=== PATIENT | female | born 1995 | race Caucasian/White ===

== ENCOUNTER 2016-04-09 14:48 | Emergency (ER) | payer OTHER ==
[~2016-04-09 14:48] MED LIST: NITR100C4 PO
--- NOTE | 2016-04-09 15:45 | PD ---
HPI Chief Complaint Contractions Date Seen: Apr 09, 2016 Time Seen: 15:30 (Fransisco Deal MD R2) Travel History International Travel<30 Days: No Contact w/Intl Traveler<30Days: No (Fransisco Deal MD R2) History of Present Illness HPI 20 year old at 40 weeks gestation with EDC of 04/09/2016 presents with contractions. The contractions started 2 days ago. She reports they are every 4 to 5 mins and have become stronger and more consistent over the last couple days. She reports that at her OB office she was 4 cm dilated, but in the OB ED she is 1 cm dilated. She also feels lower back pain and lower abdominal pressure. She has copious mucous discharge over the last few days, non- malodorous and clear. She sudden gush of fluid. She has some sporadic spotting over the last couple days, less than a pad worth of bleeding. She has no chest pain, shortness of breath, headache, blurry vision, or calf tenderness. No significant edema. (Fransisco Deal MD R2) History Past Medical History Narrative Medical Asthma, mild, has not required inhalers this (Fransisco Deal MD R2) Obstetric History Obstetric History No complications during this Had one borderline high blood pressure in OB clinic (Fransisco Deal MD) Past Surgical History Narrative Surgical none (Fransisco Deal MD) Family History Narrative Family History Mom and dad healthy (Fransisco Deal MD) Social History Narrative Social History No smoking, drinking, or drug use (Fransisco Deal MD) Allergies-Medications (Allergen,Severity, Reaction): Coded Allergies: No Known Allergies (Verified , 09/12/15) Home Meds Active Scripts Nitrofurantoin Monohydrate Macrocrystals 100 Mg [id number] Mg PO BID #10 CAP Ref 0 Prov:Farzad Gill MD R1 03/04/16 Review of Systems General / Constitutional: Weight Gain, No: Fever, Weight Loss, Chills Eyes: No: Diploplia, Blurred Vision, Visual changes HENT: No: Headaches, Vertigo, Lightheadedness Cardiovascular: No: Irregular Rhythm, Chest Pain or Discomfort, Palpitations, Tachycardia, Syncope, Edema Respiratory: No: Cough, Short of Breath, Wheezing Gastrointestinal: Abdominal Pain, No: Nausea, Vomiting, Diarrhea Genitourinary: No: Urgency, Frequency, Dysuria Musculoskeletal: Cramping, Pain, No: Weakness, Edema Skin: No Rash, No Itching, No Dryness Neurologic: No: Weakness, Dizziness, Syncope, Focal Abnormalities, Headache, Slurred Speech, Seizures Psychiatric: No: Anxiety, Depression, Mood Disorder, Substance Abuse Endocrine: No: Heat Intolerance, Cold Intolerance Hematologic/Lymphatic: No Easy Bruising (Fransisco Deal MD R2) Physical Exam Narrative GENERAL: Well-nourished, well-developed patient. SKIN: Warm and dry. HEAD: Normocephalic and atraumatic. EYES: No scleral icterus. No injection or drainage. ENT: No nasal drainage noted. Mucous membranes pink. Airway patent. NECK: Supple, trachea midline. No JVD. CARDIOVASCULAR: Regular rate and rhythm without murmurs, gallops, or rubs. RESPIRATORY: Breath sounds equal bilaterally. No accessory muscle use. ABDOMEN/GI: Abdomen soft, non-tender, bowel sounds present, no rebound, no guarding Gravid to 40 weeks size GENITOURINARY: External Genitalia: intact and normal in appearance Dilatation: 1 cm Effacement: 70% Station: -2 Presentation: [-] Membranes: unknown Uterine Contractions: q4-5mins, inconsistent FHT's: Category: 1 Baseline: 130's Reactive: yes Variability: moderate Decels: none EXTREMITIES: No cyanosis or edema. BACK: Nontender without obvious deformity. No CVA tenderness. NEUROLOGICAL: Awake and alert. Motor and sensory grossly within normal limits. Five out of 5 muscle strength in all muscle groups. Normal speech. (Fransisco Deal MD R2) Data Data Vital Signs Reviewed: Yes (Fransisco Deal MD R2) MDM Medical Record Reviewed: Yes Interpretation(s) 20 year old at 40 weeks gestation with EDC of 04/09/2016 presents with contractions. - Labor check, currently 1 cm, posterior, thick. Monitor contractions, q4-5mins but inconsistent. - Continuous monitoring. - BPP to assess status and check MARY ELLEN Discuss with Dr. Joseph Narrative Course / MDM 20 year old at 40 weeks gestation with EDC of 04/09/2016 presents with contractions. BPP is 8/8, MARY ELLEN 13 cm. Having contractions but no progression of cervical dilatation. - Return to OB ED if contractions increase in intensity and frequency, or if there is sudden gush of fluids. Keep log of contractions. - Follow up with OB physician as scheduled. - Scheduled for induction on 04/16/15, at 6 AM. (Fransisco Deal MD R2) Diagnosis Diagnosis: Primary Impression: Uterine contractions during Disposition: DISCHARGE HOME Condition: Good Attestation Patient seen and examined with the resident under direct supervision, I agree with the assessment and plan. Patient is in early labor, may discharge patient to home, patient instructed to return to labor and delivery if increased contractions, vaginal bleeding, leakage of fluids, or decreased movement. She is instructed to monitor kick counts. Drink plenty of fluids. Keep office appointment as scheduled. BPP performed is 8 out of 8, NST is reactive. (Apolinar Maki MD) Fransisco Deal MD R2 Apr 09, 2016 15:45 Apolinar Maki MD Apr 09, 2016 22:33
[2016-04-09 17:13] LABS: BLOOD, URINE MOD (NEG); COMMENT (UR) CULTURE INDICATED; CULTURE IF INDICATED CULTURE INDICATED; GLUCOSE,URINE NEG (NEG); KETONE, URINE TRACE mg/dL (NEG); MUCUS URINE FEW /lpf (OCC); NITRITE,URINE NEG (NEG); SQUAMOUS EPITHELIAL CELL URINE 1 /hpf (0-5); URINE COLOR YELLOW (YELLW/STRAW)
== END 2016-04-09 16:57 | disposition home or self-care (01) ==
LOC: HOBED 14:48
DX: O26.93 Pregnancy related conditions, unspecified, third trimester (principal); Z3A.40 40 weeks gestation of pregnancy; B96.89 Other specified bacterial agents as the cause of diseases classified elsewhere
CPT/HCPCS: 59025; 76816; 76819; 81001; 87086

== ENCOUNTER 2016-04-16 05:59 | Inpatient (IN) | payer OTHER ==
[2016-04-16] VITALS (35 sets, daily range): BP systolic 104–135; BP diastolic 60–98; PULSE 59–116; RESP 18; TEMP 97.7–98.4
[2016-04-16] MEDS ORDERED: LACTATED RINGER'S 1000 ML INJ 1,000 ML IV PRN (06:53)
[2016-04-16] MEDS ORDERED: LIDOCAINE HCL 1% 50 ML VIAL I-DERMAL PRN (07:00)
[2016-04-16] MEDS ORDERED: MINERAL OIL 10 ML VIAL TOPICAL PRN (07:00)
[2016-04-16] MEDS ORDERED: OXYTOCIN 30 UNITS-500ML PREMIX 500 ML IV SCH (07:00)
[2016-04-16] MEDS ORDERED: SODIUM CHLORID 0.9% 500 ML INJ 500 ML IV PRN (07:00)
[2016-04-16] MEDS ORDERED: OXYTOCIN 30 UNITS-500ML PREMIX 500 ML IV ONE (07:00)
[2016-04-16] MEDS ORDERED: CITRIC ACID-SODIUM CITRATE LIQ 30 ML UDC PO SCH (07:00)
[2016-04-16] MEDS ORDERED: ONDANSETRON HCL 4 MG/2 ML VIAL IV PRN (07:00)
[2016-04-16] MEDS ORDERED: LIDOCAINE HCL 1% 50 ML VIAL INFIL PRN (07:00)
[2016-04-16] MEDS ORDERED: SODIUM CHLOR 0.9% 1000 ML INJ 1,000 ML IV PRN (07:13)
[2016-04-16 07:24] LABS: AUTOMATED NEUTROPHIL # 4.5 TH/MM3 (1.8-7.7); BASOPHIL % 0.4 % (0.0-2.0); EOSINOPHIL # 0.1 TH/MM3 (0-0.4); EOSINOPHIL % 0.9 % (0.0-4.0); HEMO FLAGS DIFF FINAL; LYMPH % 28.2 % (9.0-44.0); MEAN CELL VOLUME 78.6 FL (80.0-100.0); MEAN CORPUSCULAR HEMOGLOBIN 25.3 PG (27.0-34.0); MEAN CORPUSCULAR HGB CONC 32.2 % (32.0-36.0); MONO % 7.8 % (0.0-8.0); NEUT % 62.7 % (16.0-70.0); PLATELET COUNT 281 TH/MM3 (150-450); RED BLOOD COUNT 4.59 MIL/MM3 (4.00-5.30); RED CELL DISTRIBUTION WIDTH 14.6 % (11.6-17.2); WHITE BLOOD COUNT 7.2 TH/MM3 (4.0-11.0)
[2016-04-16 07:31] LABS: BACTERIA, URINE FEW /hpf; BLOOD, URINE SMALL (NEG); COMMENT (UR) CULTURE INDICATED; CULTURE IF INDICATED CULTURE INDICATED; GLUCOSE,URINE NEG (NEG); KETONE, URINE TRACE mg/dL (NEG); MUCUS URINE FEW /lpf (OCC); NITRITE,URINE NEG (NEG); SQUAMOUS EPITHELIAL CELL URINE 14 /hpf (0-5); TRANSITIONAL EPI CELLS, URINE 1 /hpf; URINE COLOR YELLOW (YELLW/STRAW)
[2016-04-16] MEDS: LACTATED RINGER'S 1000 ML INJ 1,000 ML IV SCH ×2 (07:36→14:53)
[2016-04-16] MEDS ORDERED: fentaNYL 2MCG-BUPIV 0.125% INJ 100 ML ONE (08:04)
[2016-04-16] MEDS ORDERED: ePHEDrine/NS 50 MG/5 ML SYR ONE (08:36)
--- NOTE | 2016-04-16 09:15 | PD.LABORPN ---
Subjective Subjective Patient resting in bed. No complaints/concerns. No loss of fluids. Feeling regular contractions, movement. (Titi Araujo MD R1) Objective Vital Signs Vital Signs Date Time Temp Pulse Resp B/P Pulse Ox O2 Delivery O2 Flow Rate FiO2 04/16/16 08:42 92 119/89 04/16/16 08:40 67 04/16/16 08:39 66 112/77 04/16/16 08:36 86 122/78 04/16/16 08:35 60 04/16/16 08:34 59 108/69 04/16/16 08:30 79 118/73 04/16/16 08:27 77 120/70 04/16/16 08:25 86 04/16/16 08:24 86 120/76 04/16/16 08:22 98 108/68 04/16/16 08:20 84 04/16/16 08:18 91 122/81 04/16/16 08:15 96 129/82 04/16/16 08:14 96 135/83 04/16/16 08:00 86 125/95 Objective Pelvic Exam: Dilatation: 9 Effacement: 90 Station: 0 Presentation: vertex Membranes: intact Uterine Contractions: q4-5 minutes FHT's: Category: 1 Baseline: 140 Reactive: yes Variability: moderate Decels: none (Titi Araujo MD R1) Assessment/Plan Assessment and Plan 20 y/o at 41/0 weeks in labor 1) IUP - Continue heart monitoring - AROM - Monitor vitals - Plan for vaginal delivery (Titi Araujo MD R1) Assessment and Plan Patient seen and evaluated with the resident under direct supervision, I agree with the assessment and plan. (Apolinar Maki MD) Titi Araujo MD R1 Apr 16, 2016 09:15 Apolinar Maki MD Apr 21, 2016 20:45
[2016-04-16] MEDS ORDERED: ZOLPIDEM TARTRATE 5 MG TAB PO PRN (12:15)
[2016-04-16] MEDS ORDERED: WITCH HAZEL 50%/GLYCERIN 12.5% 40 PAD JAR TOPICAL PRN (12:15)
[2016-04-16] MEDS ORDERED: DOCUSATE SODIUM 50 MG/SENNA 8.6 MG TAB PO PRN (12:15)
[2016-04-16] MEDS ORDERED: ACETAMINOPHEN 325 MG TAB PO PRN (12:15)
[2016-04-16] MEDS ORDERED: IBUPROFEN 600 MG TAB PO PRN (12:15)
[2016-04-16] MEDS ORDERED: ALUMINUM/MAGNESIUM/SIMETH 30 ML CUP PO PRN (12:15)
[2016-04-16] MEDS ORDERED: ONDANSETRON ODT 4 MG TAB PO PRN (12:15)
[2016-04-16] MEDS ORDERED: BENZOCAINE 20% TOPICAL SPRAY 60 ML CAN TOPICAL PRN (12:15)
[2016-04-16] MEDS ORDERED: SODIUM CHLORIDE 0.9% FLUSH 5 ML FLUSH IV PRN (12:15)
--- NOTE | 2016-04-16 12:15 | PD.OB.DELI ---
Delivery Date: Apr 16, 2016 Anesthesia: Epidural Episiotomy: None Vaginal Delivery: Normal Presentation: Occiput posterior Nuchal Cord: None Infant: Male One Minute : 9 Five Minute : 9 Ten Minute : 9 Weight: 3230 Infant Care: Suctioned Placenta: Spontaneous delivery, Intact, 3 vessel cord Laceration: 2 deg Repair: Fransisco Sampson MD R2 Apr 16, 2016 12:15
--- NOTE | 2016-04-16 12:37 | PD.LABORPN ---
Subjective Subjective OB attending supervising note This patient delivered vaginally on pain initially over a second-degree perineal laceration no episiotomy used for condition is delivery is a male weight 3230 g 9 and 9 were no complications cord blood obtained placenta out spontaneously intact delivery done by the family preservation caseworker. Cord blood was obtained, laceration repaired in layers with 2-0 chromic suture there was no complication and I supervised that the repair, mother and baby doing well blood loss 200 cc sponge and needle count correct 2 Objective Vital Signs Vital Signs Date Time Temp Pulse Resp B/P Pulse Ox O2 Delivery O2 Flow Rate FiO2 04/16/16 12:17 83 119/81 04/16/16 12:16 86 04/16/16 12:00 89 124/72 04/16/16 11:46 89 123/77 04/16/16 10:00 71 116/60 04/16/16 09:30 76 129/84 04/16/16 09:09 98.4 18 04/16/16 09:00 63 124/75 04/16/16 09:00 63 124/75 04/16/16 08:57 61 120/79 04/16/16 08:54 64 120/77 04/16/16 08:51 68 118/80 04/16/16 08:50 73 04/16/16 08:50 69 119/72 04/16/16 08:47 74 104/84 04/16/16 08:45 86 04/16/16 08:42 92 119/89 04/16/16 08:40 67 04/16/16 08:39 66 112/77 04/16/16 08:36 86 122/78 04/16/16 08:35 60 04/16/16 08:34 59 108/69 04/16/16 08:30 62 04/16/16 08:30 79 118/73 04/16/16 08:27 77 120/70 04/16/16 08:25 86 04/16/16 08:24 86 120/76 04/16/16 08:22 98 108/68 04/16/16 08:20 84 04/16/16 08:18 91 122/81 04/16/16 08:15 93 04/16/16 08:15 96 129/82 04/16/16 08:14 96 135/83 04/16/16 08:00 86 125/95 Objective Pelvic Exam: Cervix: [-] Dilatation: [-] Effacement: [-] Station: [-] Presentation: [-] Membranes: [intact or ruptured] Uterine Contractions: [-] FHT's: Category: [-] Baseline: [-] Reactive: [-] Variability: [-] Decels: [-] Munir Schroeder II, MD Apr 16, 2016 12:37
[2016-04-16] MEDS ORDERED: NO SYSTEM NARCOTICS XX PRN (13:00)
[2016-04-16] MEDS ORDERED: ePHEDrine/NS 50 MG/5 ML SYR IV PRN (13:00)
[2016-04-16] MEDS ORDERED: DO NOT ADMINISTER ANTICOAGULANTS XX PRN (13:00)
[2016-04-16] MEDS ORDERED: fentaNYL 2MCG-BUPIV 0.125% INJ 100 ML EPIDURAL SCH (13:00)
[2016-04-16] MEDS ORDERED: MEASLES, MUMPS, RUBELLA VACCINE 0.5 ML VIAL SQ ONE (16:00)
[2016-04-16] MEDS ORDERED: DIPHTH/TETANUS/ACEL PERTUSSIS (BOOSTER) 0.5 ML VIAL/PFS IM ONE (16:00)
[2016-04-16] MEDS ORDERED: SODIUM CHLORIDE 0.9% FLUSH 5 ML FLUSH IV SCH (21:00)
[2016-04-17 08:30] VITALS: BP 119/78; PULSE 87; RESP 16; TEMP 98.7
--- NOTE | 2016-04-17 08:44 | HHI.OB ---
Subjective Post Day: 1 Remarks day #1. AFVSS overnight. Pain minimal. Decreased lochia. Denies dysuria. No breast tenderness. Appetite good. No nausea or vomiting. Endorses flatus. Denies bowel movement. Ambulating well. Denies calf pain, shortness of breath, or cough. Otherwise, she is doing well this morning and has no other complaints. Objective Vitals/I&O Vital Signs Date Time Temp Pulse Resp B/P Pulse Ox O2 Delivery O2 Flow Rate FiO2 04/16/16 14:25 97.7 76 18 108/80 04/16/16 13:30 116 117/98 04/16/16 13:15 64 129/83 04/16/16 13:01 70 124/82 04/16/16 12:45 70 132/89 04/16/16 12:17 83 119/81 04/16/16 12:16 86 04/16/16 12:00 89 124/72 04/16/16 11:46 89 123/77 04/16/16 10:00 71 116/60 04/16/16 09:30 76 129/84 04/16/16 09:09 98.4 18 04/16/16 09:00 63 124/75 04/16/16 09:00 63 124/75 04/16/16 08:57 61 120/79 04/16/16 08:54 64 120/77 04/16/16 08:51 68 118/80 04/16/16 08:50 73 04/16/16 08:50 69 119/72 04/16/16 08:47 74 104/84 04/16/16 08:45 86 Objective Remarks GENERAL: Well-nourished, well-developed patient. CARDIOVASCULAR: Regular rate and rhythm without murmurs, gallops, or rubs. RESPIRATORY: Breath sounds equal bilaterally. No accessory muscle use. ABDOMEN/GI: Abdomen soft, non-tender. Fundus: Firm, non-tender at umbilicus. GENITOURINARY: Light to moderate bleeding. EXTREMITIES: No cyanosis or edema, non-tender, without signs of DVT. Medications and IVs Current Medications Medications (Trade) Dose Ordered Sig/Real Route Start Time Stop Time Status Last Admin Lactated Ringer's 1,000 ml @ 125 mls/hr Q8H IV 04/16/16 06:53 04/16/16 07:36 Lactated Ringer's 1,000 ml @ 3,000 mls/hr Q20M PRN IV 04/16/16 06:53 Sodium Chloride 500 ml @ 1,000 mls/hr ONCE PRN IV 04/16/16 07:00 04/23/16 06:59 (NS 1000 ml Inj) 1,000 ml @ 100 mls/hr Q10H PRN IV 04/16/16 07:13 (Zofran Inj) 4 mg Q6H PRN IV 04/16/16 07:00 (fentaNYL INJ) 50 mcg Q1H PRN IV PUSH 04/16/16 07:00 (fentaNYL INJ) 100 mcg Q1H PRN IV PUSH 04/16/16 07:00 Mineral Oil 10 ml 10 ml UNSCH PRN TOPICAL 04/16/16 07:00 (Pitocin 30 Units-NS 500 ml Premix) 500 ml @ 0 mls/hr TITRATE IV 04/16/16 07:00 04/16/16 07:40 (NS Flush) 2 ml BID IV 04/16/16 21:00 (NS Flush) 2 ml UNSCH PRN IV 04/16/16 12:15 (Tylenol) 650 mg Q4H PRN PO 04/16/16 12:15 (Motrin) 600 mg Q6H PRN PO 04/16/16 12:15 (Americaine 20% Top Spr) 1 spray Q4H PRN TOPICAL 04/16/16 12:15 04/16/16 15:05 (Tucks Pads) 1 applic QID PRN TOPICAL 04/16/16 12:15 04/16/16 15:05 (Gregoria-Colace) 2 tab Q12H PRN PO 04/16/16 12:15 (Ambien) 5 mg HS PRN PO 04/16/16 12:15 (Mag-Al Plus Susp Liq) 15 ml Q8H PRN PO 04/16/16 12:15 (Zofran Odt) 4 mg Q6H PRN PO 04/16/16 12:15 Miscellaneous Information No systemic narcotics to be given except... UNSCH PRN XX 04/16/16 13:00 04/17/16 12:59 Miscellaneous Information DO NOT ADMINISTER ANY ANTICOAGUL... UNSCH PRN XX 04/16/16 13:00 04/17/16 12:59 (fentaNYL 2MCG-BUPIV 0.125% INJ) 100 ml @ 0 mls/hr TITRATE EPIDURAL 04/16/16 13:00 (ePHEDrine/NS 50 MG/5 ML SYR) 10 mg UNSCH PRN IV 04/16/16 13:00 04/17/16 12:59 (Flu (Quadrivalent) Vaccine Inj) 0.5 ml ONCE ONCE IM 04/17/16 10:00 04/17/16 10:01 Assessment/Plan Assessment and Plan 20y/o who is PPD#1 s/p . -Continue routine care. -Percocet and Motrin PRN pain. -Encouraged OOB. Advised pelvic rest for 6 wks. -Will need a f/u appt. within 6 wks. -Re: ctrl, she is undecided -D/c in 1-2 more days. wdw OB attending Discharge Planning 1-2 days Titi Araujo MD R1 Apr 17, 2016 08:44
--- NOTE | 2016-04-17 09:12 | HHI.OB ---
Subjective Post Day: 1 Remarks Patient is day 1 from a vaginal delivery without complication. She had the normal progress since delivery baby is doing well. She has been bleeding decreased and normal bowel bladder function. Objective Vitals/I&O Vital Signs Date Time Temp Pulse Resp B/P Pulse Ox O2 Delivery O2 Flow Rate FiO2 04/16/16 14:25 97.7 76 18 108/80 04/16/16 13:30 116 117/98 04/16/16 13:15 64 129/83 04/16/16 13:01 70 124/82 04/16/16 12:45 70 132/89 04/16/16 12:17 83 119/81 04/16/16 12:16 86 04/16/16 12:00 89 124/72 04/16/16 11:46 89 123/77 04/16/16 10:00 71 116/60 04/16/16 09:30 76 129/84 Objective Remarks GENERAL: Well-nourished, well-developed patient. CARDIOVASCULAR: Regular rate and rhythm without murmurs, gallops, or rubs. RESPIRATORY: Breath sounds equal bilaterally. No accessory muscle use. ABDOMEN/GI: Abdomen soft, non-tender. Fundus: Firm, non-tender at umbilicus. GENITOURINARY: Light to moderate bleeding. EXTREMITIES: No cyanosis or edema, non-tender, without signs of DVT. Medications and IVs Current Medications Medications (Trade) Dose Ordered Sig/Real Route Start Time Stop Time Status Last Admin Lactated Ringer's 1,000 ml @ 125 mls/hr Q8H IV 04/16/16 06:53 04/16/16 07:36 Lactated Ringer's 1,000 ml @ 3,000 mls/hr Q20M PRN IV 04/16/16 06:53 Sodium Chloride 500 ml @ 1,000 mls/hr ONCE PRN IV 04/16/16 07:00 04/23/16 06:59 (NS 1000 ml Inj) 1,000 ml @ 100 mls/hr Q10H PRN IV 04/16/16 07:13 (Zofran Inj) 4 mg Q6H PRN IV 04/16/16 07:00 (fentaNYL INJ) 50 mcg Q1H PRN IV PUSH 04/16/16 07:00 (fentaNYL INJ) 100 mcg Q1H PRN IV PUSH 04/16/16 07:00 Mineral Oil 10 ml 10 ml UNSCH PRN TOPICAL 04/16/16 07:00 (Pitocin 30 Units-NS 500 ml Premix) 500 ml @ 0 mls/hr TITRATE IV 04/16/16 07:00 04/16/16 07:40 (NS Flush) 2 ml BID IV 04/16/16 21:00 (NS Flush) 2 ml UNSCH PRN IV 04/16/16 12:15 (Tylenol) 650 mg Q4H PRN PO 04/16/16 12:15 (Motrin) 600 mg Q6H PRN PO 04/16/16 12:15 (Americaine 20% Top Spr) 1 spray Q4H PRN TOPICAL 04/16/16 12:15 04/16/16 15:05 (Tucks Pads) 1 applic QID PRN TOPICAL 04/16/16 12:15 04/16/16 15:05 (Gregoria-Colace) 2 tab Q12H PRN PO 04/16/16 12:15 (Ambien) 5 mg HS PRN PO 04/16/16 12:15 (Mag-Al Plus Susp Liq) 15 ml Q8H PRN PO 04/16/16 12:15 (Zofran Odt) 4 mg Q6H PRN PO 04/16/16 12:15 Miscellaneous Information No systemic narcotics to be given except... UNSCH PRN XX 04/16/16 13:00 04/17/16 12:59 Miscellaneous Information DO NOT ADMINISTER ANY ANTICOAGUL... UNSCH PRN XX 04/16/16 13:00 04/17/16 12:59 (fentaNYL 2MCG-BUPIV 0.125% INJ) 100 ml @ 0 mls/hr TITRATE EPIDURAL 04/16/16 13:00 (ePHEDrine/NS 50 MG/5 ML SYR) 10 mg UNSCH PRN IV 04/16/16 13:00 04/17/16 12:59 (Flu (Quadrivalent) Vaccine Inj) 0.5 ml ONCE ONCE IM 04/17/16 10:00 04/17/16 10:01 Assessment/Plan Assessment and Plan 20y/o who is PPD#1 s/p . -Continue routine care. -Percocet and Motrin PRN pain. -Encouraged OOB. Advised pelvic rest for 6 wks. -Will need a f/u appt. within 6 wks. -Re: ctrl, she is undecided -D/c in 1-2 more days. wdw OB attending Discharge Planning 1-2 days Munir Schroeder II, MD Apr 17, 2016 09:12
[2016-04-17] MEDS ORDERED: INFLUENZA VIRUS VACCINE (QUADRIVALENT) 0.5 ML SYR IM ONE (10:00)
[2016-04-17 20:00] VITALS: BP 114/84; PULSE 76; RESP 16; TEMP 98.6
[2016-04-18] MEDS ORDERED: IBUP-232 PO (07:06)
[2016-04-18] MEDS ORDERED: SENN1TAB PO (07:06)
--- NOTE | 2016-04-18 07:07 | HHI.DCPOC ---
Discharge Care Plan Diagnosis: (1) UTI (urinary tract infection) in in third trimester (2) Vaginal delivery Goals to Promote Your Health * To prevent worsening of your condition and complications * To maintain your health at the optimal level Directions to Meet Your Goals Take your medications as prescribed Follow your dietary instruction Follow activity as directed Keep your appointments as scheduled Take your immunizations and boosters as scheduled If your symptoms worsen call your PCP, if no PCP go to Urgent Care Center or Emergency Room Smoking is Dangerous to Your Health. Avoid second hand smoke Call the 24-hour hour crisis hotline for domestic abuse at Fransisco Deal MD R2 Apr 18, 2016 07:07
--- NOTE | 2016-04-18 07:21 | HHI.OB ---
Subjective Remarks day #2. Pain minimal with medication. Decreased lochia. No breast tenderness. Appetite good. No nausea or vomiting. Ambulating well. Denies calf pain, shortness of breath, or cough. Otherwise, she is doing well this morning and has no other complaints. Encouraging . Objective Vitals/I&O Vital Signs Date Time Temp Pulse Resp B/P Pulse Ox O2 Delivery O2 Flow Rate FiO2 04/17/16 20:00 98.6 04/17/16 20:00 76 16 114/84 04/17/16 08:30 98.7 87 16 04/17/16 08:30 119/78 Objective Remarks GENERAL: Well-nourished, well-developed patient. CARDIOVASCULAR: Regular rate and rhythm without murmurs, gallops, or rubs. RESPIRATORY: Breath sounds equal bilaterally. No accessory muscle use. ABDOMEN/GI: Abdomen soft, non-tender. Fundus: Firm, non-tender at umbilicus. GENITOURINARY: Light to moderate bleeding. EXTREMITIES: No cyanosis or edema, non-tender, without signs of DVT. Medications and IVs Current Medications Medications (Trade) Dose Ordered Sig/Real Route Start Time Stop Time Status Last Admin Lactated Ringer's 1,000 ml @ 125 mls/hr Q8H IV 04/16/16 06:53 04/16/16 07:36 Lactated Ringer's 1,000 ml @ 3,000 mls/hr Q20M PRN IV 04/16/16 06:53 Sodium Chloride 500 ml @ 1,000 mls/hr ONCE PRN IV 04/16/16 07:00 04/23/16 06:59 (NS 1000 ml Inj) 1,000 ml @ 100 mls/hr Q10H PRN IV 04/16/16 07:13 (Zofran Inj) 4 mg Q6H PRN IV 04/16/16 07:00 (fentaNYL INJ) 50 mcg Q1H PRN IV PUSH 04/16/16 07:00 (fentaNYL INJ) 100 mcg Q1H PRN IV PUSH 04/16/16 07:00 Mineral Oil 10 ml 10 ml UNSCH PRN TOPICAL 04/16/16 07:00 (Pitocin 30 Units-NS 500 ml Premix) 500 ml @ 0 mls/hr TITRATE IV 04/16/16 07:00 04/16/16 07:40 (NS Flush) 2 ml BID IV 04/16/16 21:00 (NS Flush) 2 ml UNSCH PRN IV 04/16/16 12:15 (Tylenol) 650 mg Q4H PRN PO 04/16/16 12:15 (Motrin) 600 mg Q6H PRN PO 04/16/16 12:15 (Americaine 20% Top Spr) 1 spray Q4H PRN TOPICAL 04/16/16 12:15 04/16/16 15:05 (Tucks Pads) 1 applic QID PRN TOPICAL 04/16/16 12:15 04/16/16 15:05 (Gregoria-Colace) 2 tab Q12H PRN PO 04/16/16 12:15 (Ambien) 5 mg HS PRN PO 04/16/16 12:15 (Mag-Al Plus Susp Liq) 15 ml Q8H PRN PO 04/16/16 12:15 Ondansetron HCl 4 mg 4 mg Q6H PRN PO 04/16/16 12:15 (fentaNYL 2MCG-BUPIV 0.125% INJ) 100 ml @ 0 mls/hr TITRATE EPIDURAL 04/16/16 13:00 Assessment/Plan Assessment and Plan 20y/o who is PPD#2 s/p . -Motrin PRN pain. -Advised pelvic rest for 6 wks. -Will need a f/u appt. within 6 wks. -Re: ctrl, she is undecided -D/c today wdw OB attending Fransisco Deal MD R2 Apr 18, 2016 07:21 Fransisco Deal MD R2 Apr 18, 2016 07:21
[2016-04-18 07:43] VITALS: BP 120/78; PULSE 72; RESP 16; TEMP 98.4
== END 2016-04-18 10:30 | disposition home or self-care (01) | DRG 775 ==
LOC: H2EA 05:59 → H1EA 15:02
PROVIDERS: ADMIT Obstetrics & Gynecology; ATTEND Obstetrics & Gynecology
PROC: 0KQM0ZZ Repair Perineum Muscle, Open Approach (ICD-10-PCS; principal; 2016-04-16)
PROC: 10E0XZZ Delivery of Products of Conception, External Approach (ICD-10-PCS; 2016-04-16)
PROC: 3E0R3CZ (ICD-10-PCS; 2016-04-16)
PROC: 00HU33Z Insertion of Infusion Device into Spinal Canal, Percutaneous Approach (ICD-10-PCS; 2016-04-16)
DX: O70.1 Second degree perineal laceration during delivery (principal); Z37.0 Single live birth; Z3A.41 41 weeks gestation of pregnancy
CPT/HCPCS: 59025; 81001; 85025; 86850; 86900; 86901; 87086; 90686; 90715; J2590; J7120; Q2038

== ENCOUNTER 2016-05-06 15:42 | Emergency (ER) | payer OTHER ==
[~2016-05-06] VITALS: Ht 162.6 cm; Wt 61.1 kg
[~2016-05-06 15:42] MED LIST changes: +IBUP-232 PO; -NITR100C4 PO; +SENN1TAB PO
[2016-05-06 16:10] VITALS: BP 98/62; PULSE 90; RESP 16; TEMP 98.1; O2SAT 97
--- NOTE | 2016-05-06 18:12 | PD ---
HPI Chief Complaint: Complaint Time Seen by Provider: 18:10 Travel History International Travel<30 days: No Contact w/Intl Traveler<30days: No Traveled to known affect area: No History of Present Illness HPI Patient is a 20-year-old female who presents emergency for evaluation of a possible urinary tract infection. Patient states at the end of her stream she feels a burning sensation. She denies any fever, chills, abdominal pain, back pain, nausea. Patient is 20 days , she states that she did have a urinary catheter while she was in the hospital. She has no other complaints at this time. PFSH Past Medical History Asthma: Yes Autoimmune Disease: No Cardiovascular Problems: No Developmental Delay: No Diminished Hearing: No Gastrointestinal Disorders: Yes (H/O vomiting) Genitourinary: No Musculoskeletal: No Neurologic: No Psychiatric: No Respiratory: Yes (Asthma ) Immunizations Current: Yes Tetanus Vaccination: < 5 Years Influenza Vaccination: Yes ?: Not LMP: Gave 2 weeks ago : 0 Para: 0 Miscarriage: 0 : 0 Ovarian Cysts: Yes Past Surgical History Oral Surgery: Yes (WISDOM TOOTH REMOAVAL) Other Surgery: Yes (RT BREAST BX-BENIGN) Social History Alcohol Use: No Tobacco Use: No Substance Use: No Allergies-Medications (Allergen,Severity, Reaction): Coded Allergies: No Known Allergies (Verified , 05/06/16) Reported Meds & Prescriptions Reported Meds & Active Scripts Active No Active Prescriptions or Reported Medications Review of Systems Except as stated in HPI: all other systems reviewed are Neg Genitourinary: Positive: Dysuria Physical Exam Narrative GENERAL: Well-nourished, well-developed patient. SKIN: Warm and dry. HEAD: Normocephalic. EYES: No scleral icterus. No injection or drainage. NECK: Supple, trachea midline. No JVD or lymphadenopathy. CARDIOVASCULAR: Regular rate and rhythm without murmurs, gallops, or rubs. RESPIRATORY: Breath sounds equal bilaterally. No accessory muscle use. GASTROINTESTINAL: Abdomen soft, non-tender, nondistended. MUSCULOSKELETAL: No cyanosis, or edema. BACK: Nontender without obvious deformity. No CVA tenderness. Data Data Last Documented VS Vital Signs Date Time Temp Pulse Resp B/P Pulse Ox O2 Delivery O2 Flow Rate FiO2 05/06/16 16:10 98.1 90 16 98/62 97 Orders Urinalysis - C+S If Indicated (05/06/16 16:12) Labs Laboratory Tests Test 05/06/16 18:00 Urine pH 6.5 Urine Protein 30 mg/dL Urine Glucose (UA) NEG mg/dL Urine Ketones NEG mg/dL Urine Occult Blood TRACE Urine Nitrite POS Urine Bilirubin NEG Urine Leukocyte Esterase MOD MDM Medical Decision Making Medical Screen Exam Complete: Yes Emergency Medical Condition: Yes Interpretation(s) Vital Signs Date Time Temp Pulse Resp B/P Pulse Ox O2 Delivery O2 Flow Rate FiO2 05/06/16 16:10 98.1 90 16 98/62 97 Differential Diagnosis Urinary tract infection versus pyelonephritis versus dysuria versus Narrative Course Patient is a 20-year-old female presenting for evaluation of possible urinary tract infection. Her dysuria started yesterday. Patient's vital signs are stable, she is afebrile. Urinalysis ordered and pending. Urinalysis is positive for nitrites, consistent with a urinary tract infection. Patient will be provided with a prescription for flex and she is breast- feeding. She is encouraged follow-up with her AD CLERK or primary care provider. She is encouraged to maintain adequate fluid intake, she is encouraged to return to emergency department for any new or worsening symptoms. Patient verbalized understanding of instructions. Patient is stable for discharge. Diagnosis Primary Impression: Urinary tract infection Qualified Code: N39.0 - Urinary tract infection with hematuria, site unspecified Referrals: [facility] Primary Care Physician Patient Instructions: General Instructions, Urinary Tract Infection in Women ( ED) Additional Instructions: Follow-up with her primary doctor Complete full course of antibiotics as directed Increased fluid intake Return to emergency department for any new or worsening symptoms Med/Other Pt SpecificInfo: Prescription(s) given Scripts Cephalexin (Keflex)500 Mg Aol991 Mg PO Q8H 7 Days Ref 0 Prov:Chelsi Mcfadden 05/06/16 Disposition: 01 DISCHARGE HOME Condition: Stable Chelsi Mcfadden May 06, 2016 18:12
[2016-05-06 18:16] LABS: BLOOD, URINE TRACE (NEG); GLUCOSE,URINE NEG (NEG); KETONE, URINE NEG (NEG); PH, URINE 6.5 (5.0-8.5)
[2016-05-06 18:28] LABS: NITRITE,URINE POS (NEG)
[2016-05-06] MEDS ORDERED: CEPH-460 PO (18:42)
[2016-05-06 18:49] LABS: METHOD OF COLLECTION CLEAN CATCH; URINE COLOR YELLOW (YELLW/STRAW)
[2016-05-06 18:54] LABS: MUCUS URINE MANY /lpf (OCC); WBC, URINE INNUM /hpf (0-5)
[2016-05-06 18:55] LABS: BACTERIA, URINE MANY /hpf; COMMENT (UR) CULTURE INDICATED; CULTURE IF INDICATED CULTURE INDICATED; SQUAMOUS EPITHELIAL CELL URINE >8 /hpf (0-5)
== END 2016-05-06 18:54 | disposition home or self-care (01) ==
LOC: PHED 15:42 → PHEFT 18:54
DX: N39.0 Urinary tract infection, site not specified (principal)
CPT/HCPCS: 81001; 86403; 87086; 99283

== ENCOUNTER 2016-09-16 14:06 | Emergency (ER) | payer OTHER ==
[~2016-09-16] VITALS: Ht 162.6 cm; Wt 60.0 kg
[~2016-09-16 14:06] MED LIST changes: +CEPH-460 PO; -IBUP-232 PO; -SENN1TAB PO
[2016-09-16 14:15] VITALS: BP 106/71; PULSE 87; RESP 16; TEMP 98.5; O2SAT 97
[2016-09-16] MEDS ORDERED: HYDR-3133 PO (14:44)
--- NOTE | 2016-09-16 14:44 | PD ---
HPI Chief Complaint: Skin Problem Time Seen by Provider: 14:30 Travel History International Travel<30 days: No Contact w/Intl Traveler<30days: No Traveled to known affect area: No History of Present Illness HPI Said 21 year-old woman presents to the emergency department complaining of itching rash in her antecubital full dose on both arms, as well as on her back. Started yesterday. Dysuria chief. No known precipitants. No new detergents. 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 She otherwise had been feeling well. No history of allergic reactions. No other complaints. History Past Medical History Narrative Medical Asthma Tetanus Vaccination: < 5 Years Influenza Vaccination: Yes : 0 Para: 0 Social History Alcohol Use: No Tobacco Use: No Allergies-Medications (Allergen,Severity, Reaction): Coded Allergies: No Known Allergies (Verified , 09/16/16) Reported Meds & Prescriptions Reported Meds & Active Scripts Active No Active Prescriptions or Reported Medications Review of Systems Except as stated in HPI: all other systems reviewed are Neg Physical Exam Narrative GENERAL: Well-appearing 21 year-old woman, no acute distress. SKIN: Warm and dry. There is a fine papular rash in the intertriginous folds in both forearms. There is no erythema redness or color change. No tenderness. No vesicles or pustules. There is minimal fine sandpapery rash on the back as well. CARDIOVASCULAR: Warm and well perfused. RESPIRATORY: Normal rate and effort. MUSCULOSKELETAL: No obvious deformities. NEUROLOGICAL: Awake and alert. No gross deficits. Data Data Last Documented VS Vital Signs Date Time Temp Pulse Resp B/P Pulse Ox O2 Delivery O2 Flow Rate FiO2 09/16/16 14:15 98.5 87 16 106/71 97 Orders Hydroxyzine Hcl (Atarax) (09/16/16 14:45) [facility] Medical Decision Making Medical Screen Exam Complete: Yes Emergency Medical Condition: Yes Differential Diagnosis Rash, viral exanthem, contact irritations, vasculitis, dermatitis, other Narrative Course Medical decision making Is a 21 year-old woman with itchy rash underarms impacts likely a contact reaction or heat rash. Looks overall well. Recommend antihistamines. Diagnosis Primary Impression: Rash Additional Instructions: Take Atarax as prescribed. He can apply cortisone to the areas of itching as well as needed. Follow-up with her primary doctor in 3-5 days if you're not completely well. Return to the emergency department for any new or worsening symptoms. Med/Other Pt SpecificInfo: Prescription(s) given Scripts Hydroxyzine HCl 25 Mg Tab25 Mg PO TID PRN (ITCHING) #12 TAB Ref 0 Prov:Damien Leung MD 09/16/16 Disposition: 01 DISCHARGE HOME Condition: Stable Damien Leung MD Sep 16, 2016 14:44
[2016-09-16] MEDS ORDERED: hydrOXYzine HCL 25 MG TAB PO ONE (14:45)
== END 2016-09-16 14:56 | disposition home or self-care (01) ==
LOC: PHEFT 14:06
DX: R21 Rash and other nonspecific skin eruption (principal); J45.909 Unspecified asthma, uncomplicated
CPT/HCPCS: 99283

== ENCOUNTER 2017-04-01 10:35 | Emergency (ER) | payer OTHER ==
[~2017-04-01] VITALS: Ht 162.6 cm; Wt 60.0 kg
[~2017-04-01 10:35] MED LIST changes: -CEPH-460 PO; +HYDR-3133 PO
[2017-04-01 10:37] VITALS: BP 117/66; PULSE 95; RESP 15; TEMP 97.6; O2SAT 97
[2017-04-01] MEDS ORDERED: MAPA325T PO (11:09)
[2017-04-01] MEDS ORDERED: MAPA500T13 PO (11:09)
--- NOTE | 2017-04-01 11:27 | PD ---
HPI Chief Complaint: Abdominal Pain Time Seen by Provider: 11:01 Travel History International Travel<30 days: No Contact w/Intl Traveler<30days: No Traveled to known affect area: No History of Present Illness HPI This 21-year-old female says she been having some right lower quadrant pain since yesterday. She has had some nausea. She had a baby a year ago and says she has not been sexually active since. Prior to having the baby she did have several episodes of ovarian cysts.. She is not aware of any fever or chills. PFSH Past Medical History Hx Anticoagulant Therapy: No Asthma: Yes Autoimmune Disease: No Cardiovascular Problems: No Developmental Delay: No Diabetes: No Diminished Hearing: No Gastrointestinal Disorders: Yes (H/O vomiting) Genitourinary: No Musculoskeletal: No Neurologic: No Psychiatric: No Respiratory: Yes (Asthma ) Immunizations Current: Yes Tetanus Vaccination: < 5 Years Influenza Vaccination: Yes ?: Not LMP: 1 WEEK AGO : 0 Para: 0 Miscarriage: 0 : 0 Ovarian Cysts: Yes Past Surgical History Oral Surgery: Yes (WISDOM TOOTH REMOAVAL) Other Surgery: Yes (RT BREAST BX-BENIGN) Social History Alcohol Use: No Tobacco Use: No Substance Use: No Allergies-Medications (Allergen,Severity, Reaction): Coded Allergies: No Known Allergies (Verified Adverse Reaction, Unknown, 04/01/17) Reported Meds & Prescriptions Reported Meds & Active Scripts Active Reported Mapap (Acetaminophen) 325 Mg Tab 650 Mg PO Q4-6H PRN Mapap Extra Strength (Acetaminophen) 500 Mg Tab 500 Mg PO Q4-6H PRN Review of Systems Except as stated in HPI: all other systems reviewed are Neg General / Constitutional: No: Fever, Chills Eyes: No: Diploplia, Blurred Vision HENT: No: Headaches, Lightheadedness Cardiovascular: No: Chest Pain or Discomfort Respiratory: No: Cough Gastrointestinal: Positive: Nausea, Abdominal Pain Genitourinary: Positive: Pelvic Pain, No: Dysuria Musculoskeletal: No: Myalgias, Arthralgias Skin: No Rash, No Itching Hematologic/Lymphatic: No: Easy Bruising Physical Exam Narrative GENERAL: Well-developed female SKIN: Focused skin assessment warm/dry. HEAD: Atraumatic. Normocephalic. EYES: Pupils equal and round. No scleral icterus. No injection or drainage. ENT: No nasal bleeding or discharge. Mucous membranes pink and moist. NECK: Trachea midline. No JVD. CARDIOVASCULAR: Regular rate and rhythm. No murmur appreciated. RESPIRATORY: No accessory muscle use. Clear to auscultation. Breath sounds equal bilaterally. GASTROINTESTINAL: Abdomen soft, there is some right lower quadrant tenderness nondistended. Hepatic and splenic margins not palpable. Pelvic: No discharge. No pain with bimanual exam MUSCULOSKELETAL: No obvious deformities. No clubbing. No cyanosis. No edema. NEUROLOGICAL: Awake and alert. No obvious cranial nerve deficits. Motor grossly within normal limits. Normal speech. PSYCHIATRIC: Appropriate mood and affect; insight and judgment normal. Data Data Last Documented VS Vital Signs Date Time Temp Pulse Resp B/P (MAP) Pulse Ox O2 Delivery O2 Flow Rate FiO2 04/01/17 12:21 78 16 93/55 (68) 100 Room Air 04/01/17 10:37 97.6 Orders Orders Complete Blood Count With Diff (04/01/17 11:24) Comprehensive Metabolic Panel (04/01/17 11:24) Urinalysis - C+S If Indicated (04/01/17 11:24) Gc And Chlamydia Pcr (04/01/17 11:24) Ct Abd/Pel W Iv Contrast(Rout) (04/01/17 11:24) Ed Urine Pregnancytest Poc (04/01/17 11:24) Sodium Chlor 0.9% 1000 Ml Inj (Ns 1000 M (04/01/17 11:30) Ondansetron Inj (Zofran Inj) (04/01/17 12:00) Morphine Inj (Morphine Inj) (04/01/17 12:00) Morphine Inj (Morphine Inj) (04/01/17 12:15) Iohexol 350 Inj (Omnipaque 350 Inj) (04/01/17 12:30) Labs Laboratory Tests Test 04/01/17 11:37 White Blood Count 4.9 TH/MM3 Red Blood Count 4.59 MIL/MM3 Hemoglobin 12.4 GM/DL Hematocrit 37.8 % Mean Corpuscular Volume 82.3 FL Mean Corpuscular Hemoglobin 27.0 PG Mean Corpuscular Hemoglobin Concent 32.7 % Red Cell Distribution Width 12.7 % Platelet Count 283 TH/MM3 Mean Platelet Volume 8.7 FL Neutrophils (%) (Auto) 72.0 % Lymphocytes (%) (Auto) 21.8 % Monocytes (%) (Auto) 4.7 % Eosinophils (%) (Auto) 1.1 % Basophils (%) (Auto) 0.4 % Neutrophils # (Auto) 3.5 TH/MM3 Lymphocytes # (Auto) 1.1 TH/MM3 Monocytes # (Auto) 0.2 TH/MM3 Eosinophils # (Auto) 0.1 TH/MM3 Basophils # (Auto) 0.0 TH/MM3 CBC Comment DIFF FINAL Differential Comment Urine Collection Type CLEAN CATCH Urine Color YELLOW Urine Turbidity SLIGHT Urine pH 6.0 Urine Specific [place] 1.027 Urine Protein NEG mg/dL Urine Glucose (UA) NEG mg/dL Urine Ketones 15 mg/dL Urine Occult Blood NEG Urine Nitrite NEG Urine Bilirubin NEG Urine Leukocyte Esterase NEG Urine WBC 0-2 /hpf Urine Squamous Epithelial Cells > 8 /hpf Urine Amorphous Sediment MOD Microscopic Urinalysis Comment CULT NOT INDICATED Urine Collection Time 1137 Blood Urea Nitrogen 11 MG/DL Creatinine 0.63 MG/DL Random Glucose 90 MG/DL Total Protein 8.0 GM/DL Albumin 3.9 GM/DL Calcium Level 9.0 MG/DL Alkaline Phosphatase 69 U/L Aspartate Amino Transf (AST/SGOT) 15 U/L Alanine Aminotransferase (ALT/SGPT) 14 U/L Total Bilirubin 0.5 MG/DL Sodium Level 136 MEQ/L Potassium Level 3.7 MEQ/L Chloride Level 102 MEQ/L Carbon Dioxide Level 27.1 MEQ/L Anion Gap 7 MEQ/L Estimat Glomerular Filtration Rate 118 ML/MIN MDM Medical Decision Making Medical Screen Exam Complete: Yes Emergency Medical Condition: Yes Medical Record Reviewed: Yes Differential Diagnosis Differential includes appendicitis, cervicitis, ovarian cyst Narrative Course White count is normal. CT scan of the abdomen and pelvis is negative as noted that she has bilateral ovarian cysts. Patient is stable for discharge Diagnosis Primary Impression: Ovarian cyst Qualified Codes: N83.201 - Unspecified ovarian cyst, right side Scripts Hydrocodone-Acetaminophen (Hydrocodone-Acetaminophen) 5-325 mg Tab 1 TAB PO Q4H Y for PAIN, #14 TAB 0 Refills Prov: Seven Jacome MD 04/01/17 Disposition: 01 DISCHARGE HOME Condition: Stable Seven Jacome MD Apr 01, 2017 11:27
[2017-04-01] MEDS ORDERED: SODIUM CHLOR 0.9% 1000 ML INJ 1,000 ML IV ONE (11:30)
[2017-04-01 11:44] LABS: AUTOMATED NEUTROPHIL # 3.5 TH/MM3 (1.8-7.7); BASOPHIL % 0.4 % (0.0-2.0); EOSINOPHIL # 0.1 TH/MM3 (0-0.4); EOSINOPHIL % 1.1 % (0.0-4.0); HEMATOCRIT 37.8 % (35.0-46.0); HEMOGLOBIN 12.4 GM/DL (11.6-15.3); LYMPH % 21.8 % (9.0-44.0); LYMPHOCYTE # 1.1 TH/MM3 (1.0-4.8); MEAN CELL VOLUME 82.3 FL (80.0-100.0); MEAN CORPUSCULAR HGB CONC 32.7 % (32.0-36.0); MEAN PLATELET VOLUME 8.7 FL (7.0-11.0); MONO % 4.7 % (0.0-8.0); MONOCYTE # 0.2 TH/MM3 (0-0.9); PLATELET COUNT 283 TH/MM3 (150-450); RED BLOOD COUNT 4.59 MIL/MM3 (4.00-5.30); RED CELL DISTRIBUTION WIDTH 12.7 % (11.6-17.2); WHITE BLOOD COUNT 4.9 TH/MM3 (4.0-11.0)
[2017-04-01 11:46] LABS: BILIRUBIN, URINE NEG (NEG); BLOOD, URINE NEG (NEG); GLUCOSE,URINE NEG (NEG); KETONE, URINE 15 mg/dL (NEG); NITRITE,URINE NEG (NEG); URINE LEUKOCYTE ESTERASE NEG (NEG)
[2017-04-01 11:49] LABS: URINE COLOR YELLOW (YELLW/STRAW)
[2017-04-01 11:52] LABS: AMORPHOUS SEDIMENT, URINE MOD; SQUAMOUS EPITHELIAL CELL URINE > 8 /hpf (0-5); WBC, URINE 0-2 /hpf (0-5)
[2017-04-01 11:54] LABS: CHLORIDE 102 MEQ/L (98-107); SODIUM (NA) 136 MEQ/L (136-145)
[2017-04-01 11:57] LABS: ALBUMIN 3.9 GM/DL (3.4-5.0); BICARBONATE 27.1 MEQ/L (21.0-32.0); BLOOD UREA NITROGEN 11 MG/DL (7-18); GLUCOSE,RANDOM 90 MG/DL (74-106)
[2017-04-01 12:00] LABS: ALT (GPT) 14 U/L (10-53); AST (GOT) 15 U/L (15-37); CREATININE 0.63 MG/DL (0.50-1.00); GLOMERULAR FILTRATION RATE 118 ML/MIN (>89)
[2017-04-01] MEDS ORDERED: ONDANSETRON HCL 4 MG/2 ML VIAL IV PUSH ONE (12:00)
[2017-04-01] MEDS ORDERED: MORPHINE SULFATE 4 MG/ML INJ IV PUSH ONE (12:00)
[2017-04-01 12:02] LABS: TOTAL BILIRUBIN ADULT 0.5 MG/DL (0.2-1.0)
[2017-04-01 12:03] LABS: ALKALINE PHOSPHATASE 69 U/L (45-117)
[2017-04-01] MEDS ORDERED: MORPHINE SULFATE 2 MG/ML INJ IV PUSH ONE (12:15)
[2017-04-01 12:21] VITALS: BP 93/55; PULSE 78; RESP 16; O2SAT 100
[2017-04-01] MEDS ORDERED: IOHEXOL 350 MG/ML 10 ML VIAL (for RAD DIAG) IVCONTRAST ONE (12:30)
--- NOTE | 2017-04-01 12:51 | RADRPT ---
EXAM DATE/TIME: 04/01/2017 12:22 [facility] COMPARISON: No previous studies available for comparison. INDICATIONS : Right lower quadrant pain with vomiting. Evaluate for appendicitis. IV CONTRAST: 85 cc Omnipaque 350 (iohexol) IV ORAL CONTRAST: No oral contrast ingested. RADIATION DOSE: 5.40 CTDIvol (mGy) MEDICAL HISTORY : None SURGICAL HISTORY : None. ENCOUNTER: Initial ACUITY: 2 days PAIN SCALE: 7/10 LOCATION: Right lower quadrant TECHNIQUE: Volumetric scanning of the abdomen and pelvis was performed. Using automated exposure control and ad justment of the mA and/or kV according to patient size, radiation dose was kept as low as reasonably achievable to obtain optimal diagnostic quality images. DICOM format image data is available electro nically for review and comparison. FINDINGS: LOWER LUNGS: The visualized lower lungs are clear. LIVER: Homogeneous density without lesion. There is no dilation of the biliary tree. No calcified gallston es. SPLEEN: Normal size without lesion. PANCREAS: Within normal limits. KIDNEYS: Normal in size and shape. There is no mass, stone or hydronephrosis. ADRENAL GLANDS: Within normal limits. VASCULAR: There is no aortic aneurysm. BOWEL/MESENTERY: The stomach, small bowel, and colon demonstrate no acute abnormality. There is no free intraperitone al air or fluid. ABDOMINAL WALL: Within normal limits. RETROPERITONEUM: There is no lymphadenopathy. BLADDER: No wall thickening or mass. REPRODUCTIVE: Within normal limits. INGUINAL: There is no lymphadenopathy or hernia. MUSCULOSKELETAL: Within normal limits for patient age. CONCLUSION: 1. There are no acute findings on abdomen and pelvic CT. Specifically the appendix appears normal on CT. No free fluid or obstruction. Incidental small bilateral ovarian cysts. Vin Meade MD on April 01, 2017 at 12:45 Board Certified Radiologist. This report was verified electronically.
[2017-04-01] MEDS ORDERED: HYDR-3516 PO (13:34)
[2017-04-01] MEDS ORDERED: ZOFR4TAB3 SL (13:44)
== END 2017-04-01 13:51 | disposition home or self-care (01) ==
LOC: PHED 10:35
DX: N83.201 Unspecified ovarian cyst, right side (principal); R11.2 Nausea with vomiting, unspecified; J45.909 Unspecified asthma, uncomplicated
CPT/HCPCS: 74177; 80053; 81001; 84703; 85025; 87491; 87591; 96361; 96374; 96375; 99285; J2270; J2405; J7030; Q9967

== ENCOUNTER 2017-04-10 12:29 | Emergency (ER) | payer OTHER ==
[~2017-04-10] VITALS: Ht 162.6 cm; Wt 56.8 kg
[~2017-04-10 12:29] MED LIST changes: -HYDR-3133 PO; +HYDR-3516 PO; +MAPA325T PO; +MAPA500T13 PO; +ZOFR4TAB3 SL
[2017-04-10 12:33] VITALS: BP 109/59; PULSE 95; RESP 18; TEMP 97.7; O2SAT 98
[2017-04-10 13:47] LABS: AUTOMATED NEUTROPHIL # 2.6 TH/MM3 (1.8-7.7); BASOPHIL % 0.7 % (0.0-2.0); EOSINOPHIL # 0.1 TH/MM3 (0-0.4); EOSINOPHIL % 1.6 % (0.0-4.0); HEMOGLOBIN 12.7 GM/DL (11.6-15.3); LYMPH % 41.8 % (9.0-44.0); LYMPHOCYTE # 2.1 TH/MM3 (1.0-4.8); MEAN CELL VOLUME 83.4 FL (80.0-100.0); MEAN CORPUSCULAR HEMOGLOBIN 27.9 PG (27.0-34.0); MEAN CORPUSCULAR HGB CONC 33.4 % (32.0-36.0); MEAN PLATELET VOLUME 8.7 FL (7.0-11.0); MONO % 5.3 % (0.0-8.0); MONOCYTE # 0.3 TH/MM3 (0-0.9); NEUT % 50.6 % (16.0-70.0); PLATELET COUNT 375 TH/MM3 (150-450); RED BLOOD COUNT 4.56 MIL/MM3 (4.00-5.30); RED CELL DISTRIBUTION WIDTH 13.5 % (11.6-17.2); WHITE BLOOD COUNT 5.1 TH/MM3 (4.0-11.0)
[2017-04-10 13:58] LABS: BILIRUBIN, URINE NEG (NEG); BLOOD, URINE NEG (NEG); GLUCOSE,URINE NEG (NEG); KETONE, URINE NEG (NEG); MUCUS URINE MANY /lpf (OCC); NITRITE,URINE NEG (NEG); SQUAMOUS EPITHELIAL CELL URINE 4 /hpf (0-5); URINE COLOR YELLOW (YELLW/STRAW); URINE LEUKOCYTE ESTERASE NEG (NEG)
[2017-04-10 14:08] LABS: ALBUMIN 4.2 GM/DL (3.4-5.0); ALT (GPT) 18 U/L (10-53); AST (GOT) 13 U/L (15-37); BLOOD UREA NITROGEN 9 MG/DL (7-18); CALCIUM 8.7 MG/DL (8.5-10.1); CHLORIDE 105 MEQ/L (98-107); CREATININE 0.68 MG/DL (0.50-1.00); GLOMERULAR FILTRATION RATE 108 ML/MIN (>89); GLUCOSE,RANDOM 84 MG/DL (74-106); LIPASE 80 U/L (73-393); SODIUM (NA) 139 MEQ/L (136-145)
[2017-04-10 14:10] LABS: ALKALINE PHOSPHATASE 61 U/L (45-117); TOTAL BILIRUBIN ADULT 0.3 MG/DL (0.2-1.0); TOTAL PROTEIN 8.1 GM/DL (6.4-8.2)
[2017-04-10] MEDS ORDERED: MORPHINE SULFATE 2 MG/ML INJ IV PUSH ONE (14:15)
[2017-04-10] MEDS ORDERED: ONDANSETRON HCL 4 MG/2 ML VIAL IVP ONE (14:15)
[2017-04-10] MEDS ORDERED: SODIUM CHLORID 0.9% 500 ML INJ 500 ML IV ONE (14:15)
[2017-04-10] MEDS ORDERED: KETOROLAC TROMETHAMINE 30 MG/ML (IVP) VIAL IV PUSH ONE (14:15)
--- NOTE | 2017-04-10 14:15 | PD ---
HPI Chief Complaint: Abdominal Pain Time Seen by Provider: 13:40 Travel History International Travel<30 days: No Contact w/Intl Traveler<30days: No Traveled to known affect area: No History of Present Illness HPI The patient is a 21-year-old female who presents to the emergency department for right lower quadrant abdominal pain. The patient states since she delivered a child approximately one year ago she is had painful intercourse and right lower quadrant abdominal pain. The patient went to the emergency department at [facility] approximately one week ago where she had a pelvic examination, laboratory evaluation, and a CT the abdomen and pelvis. The patient was advised she has bilateral ovarian cyst, but no evidence of appendicitis. The patient was told that she had a "abnormal" cervix on inspection. She has not followed up with an double needle operator and has not had a recent Pap smear in several years. The patient states the pain is located right lower quadrant, intermittent, worse with certain movements, such as flexion of the hip, extension of the hip, but can occur at rest. She denies any current nausea, vomiting, diarrhea, constipation, dysuria, frequency, urgency, vaginal bleeding, or vaginal discharge. She denies any current fever, chills, or sweats. PFSH Past Medical History Hx Anticoagulant Therapy: No Asthma: Yes Autoimmune Disease: No Cardiovascular Problems: No Developmental Delay: No Diabetes: No Diminished Hearing: No Gastrointestinal Disorders: Yes (H/O vomiting) Genitourinary: No Musculoskeletal: No Neurologic: No Psychiatric: No Respiratory: Yes (asthma) Immunizations Current: Yes ?: Not LMP: 03/25/2017 : 0 Para: 0 Miscarriage: 0 : 0 Ovarian Cysts: Yes Past Surgical History Oral Surgery: Yes (WISDOM TOOTH REMOAVAL) Other Surgery: Yes (RT BREAST BX-BENIGN) Social History Alcohol Use: No Tobacco Use: No Substance Use: No Allergies-Medications (Allergen,Severity, Reaction): Coded Allergies: No Known Allergies (Verified Adverse Reaction, Unknown, 04/10/17) Reported Meds & Prescriptions Reported Meds & Active Scripts Active Review of Systems Except as stated in HPI: all other systems reviewed are Neg General / Constitutional: No: Fever Cardiovascular: No: Chest Pain or Discomfort Respiratory: No: Shortness of Breath Gastrointestinal: Positive: Abdominal Pain, No: Nausea, Vomiting, Diarrhea Genitourinary: No: Urgency, Frequency, Dysuria, Hematuria, Discharge, Vaginal Bleeding Musculoskeletal: No: Weakness Neurologic: No: Dizziness Physical Exam Narrative GENERAL: Awake, alert, nontoxic-appearing 21-year-old female who appears her stated age is in no acute respiratory distress. SKIN: Focused skin assessment warm/dry. HEAD: Atraumatic. Normocephalic. EYES: Pupils equal and round. No scleral icterus. No injection or drainage. ENT: No nasal bleeding or discharge. Mucous membranes pink and moist. NECK: Trachea midline. No JVD. CARDIOVASCULAR: Regular rate and rhythm. No murmur appreciated. RESPIRATORY: No accessory muscle use. Clear to auscultation. Breath sounds equal bilaterally. GASTROINTESTINAL: Abdomen soft, tender to palpation right lower quadrant and over the inguinal canal. Pelvic: Deferred by patient. Back: No CVA tenderness. MUSCULOSKELETAL: Passive flexion and extension of the hip does exacerbate her pain. Tender to palpation right inguinal canal but no obvious large cervical lymphadenopathy. NEUROLOGICAL: Awake and alert. No obvious cranial nerve deficits. Motor grossly within normal limits. Normal speech. PSYCHIATRIC: Appropriate mood and affect; insight and judgment normal. Data Data Last Documented VS Vital Signs Date Time Temp Pulse Resp B/P (MAP) Pulse Ox O2 Delivery O2 Flow Rate FiO2 04/10/17 12:33 97.7 95 18 109/59 (76) 98 Room Air Orders Orders Complete Blood Count With Diff (04/10/17 12:35) Comprehensive Metabolic Panel (04/10/17 12:35) Lipase (04/10/17 12:35) Urinalysis - C+S If Indicated (04/10/17 12:35) Ed Urine Pregnancytest Poc (04/10/17 12:35) Iv Access Insert/Monitor (04/10/17 14:08) Ondansetron Inj (Zofran Inj) (04/10/17 14:15) Us Pelvis Comp W Doppler (04/10/17 14:08) Ketorolac Inj (Toradol Inj) (04/10/17 14:15) Morphine Inj (Morphine Inj) (04/10/17 14:15) Sodium Chlorid 0.9% 500 Ml Inj (Ns 500 M (04/10/17 14:15) Labs Laboratory Tests Test 04/10/17 12:50 04/10/17 12:54 Urine Color YELLOW Urine Turbidity HAZY Urine pH 6.0 Urine Specific [place] 1.028 Urine Protein TRACE mg/dL Urine Glucose (UA) NEG mg/dL Urine Ketones NEG mg/dL Urine Occult Blood NEG Urine Nitrite NEG Urine Bilirubin NEG Urine Urobilinogen LESS THAN 2.0 MG/DL Urine Leukocyte Esterase NEG Urine WBC 2 /hpf Urine Squamous Epithelial Cells 4 /hpf Urine Mucus MANY /lpf Microscopic Urinalysis Comment CULT NOT INDICATED White Blood Count 5.1 TH/MM3 Red Blood Count 4.56 MIL/MM3 Hemoglobin 12.7 GM/DL Hematocrit 38.0 % Mean Corpuscular Volume 83.4 FL Mean Corpuscular Hemoglobin 27.9 PG Mean Corpuscular Hemoglobin Concent 33.4 % Red Cell Distribution Width 13.5 % Platelet Count 375 TH/MM3 Mean Platelet Volume 8.7 FL Neutrophils (%) (Auto) 50.6 % Lymphocytes (%) (Auto) 41.8 % Monocytes (%) (Auto) 5.3 % Eosinophils (%) (Auto) 1.6 % Basophils (%) (Auto) 0.7 % Neutrophils # (Auto) 2.6 TH/MM3 Lymphocytes # (Auto) 2.1 TH/MM3 Monocytes # (Auto) 0.3 TH/MM3 Eosinophils # (Auto) 0.1 TH/MM3 Basophils # (Auto) 0.0 TH/MM3 CBC Comment DIFF FINAL Differential Comment Blood Urea Nitrogen 9 MG/DL Creatinine 0.68 MG/DL Random Glucose 84 MG/DL Total Protein 8.1 GM/DL Albumin 4.2 GM/DL Calcium Level 8.7 MG/DL Alkaline Phosphatase 61 U/L Aspartate Amino Transf (AST/SGOT) 13 U/L Alanine Aminotransferase (ALT/SGPT) 18 U/L Total Bilirubin 0.3 MG/DL Sodium Level 139 MEQ/L Potassium Level 3.6 MEQ/L Chloride Level 105 MEQ/L Carbon Dioxide Level 28.0 MEQ/L Anion Gap 6 MEQ/L Estimat Glomerular Filtration Rate 108 ML/MIN Lipase 80 U/L [facility] Medical Decision Making Medical Screen Exam Complete: Yes Emergency Medical Condition: Yes Medical Record Reviewed: Yes Interpretation(s) Laboratory Tests Test 04/10/17 12:50 04/10/17 12:54 Urine Color YELLOW Urine Turbidity HAZY Urine pH 6.0 Urine Specific [place] 1.028 Urine Protein TRACE mg/dL Urine Glucose (UA) NEG mg/dL Urine Ketones NEG mg/dL Urine Occult Blood NEG Urine Nitrite NEG Urine Bilirubin NEG Urine Urobilinogen LESS THAN 2.0 MG/DL Urine Leukocyte Esterase NEG Urine WBC 2 /hpf Urine Squamous Epithelial Cells 4 /hpf Urine Mucus MANY /lpf Microscopic Urinalysis Comment CULT NOT INDICATED White Blood Count 5.1 TH/MM3 Red Blood Count 4.56 MIL/MM3 Hemoglobin 12.7 GM/DL Hematocrit 38.0 % Mean Corpuscular Volume 83.4 FL Mean Corpuscular Hemoglobin 27.9 PG Mean Corpuscular Hemoglobin Concent 33.4 % Red Cell Distribution Width 13.5 % Platelet Count 375 TH/MM3 Mean Platelet Volume 8.7 FL Neutrophils (%) (Auto) 50.6 % Lymphocytes (%) (Auto) 41.8 % Monocytes (%) (Auto) 5.3 % Eosinophils (%) (Auto) 1.6 % Basophils (%) (Auto) 0.7 % Neutrophils # (Auto) 2.6 TH/MM3 Lymphocytes # (Auto) 2.1 TH/MM3 Monocytes # (Auto) 0.3 TH/MM3 Eosinophils # (Auto) 0.1 TH/MM3 Basophils # (Auto) 0.0 TH/MM3 CBC Comment DIFF FINAL Differential Comment Blood Urea Nitrogen 9 MG/DL Creatinine 0.68 MG/DL Random Glucose 84 MG/DL Total Protein 8.1 GM/DL Albumin 4.2 GM/DL Calcium Level 8.7 MG/DL Alkaline Phosphatase 61 U/L Aspartate Amino Transf (AST/SGOT) 13 U/L Alanine Aminotransferase (ALT/SGPT) 18 U/L Total Bilirubin 0.3 MG/DL Sodium Level 139 MEQ/L Potassium Level 3.6 MEQ/L Chloride Level 105 MEQ/L Carbon Dioxide Level 28.0 MEQ/L Anion Gap 6 MEQ/L Estimat Glomerular Filtration Rate 108 ML/MIN Lipase 80 U/L Last Impressions Pelvis Ultrasound 04/10/17 1408 Signed Impressions: Service Date/Time: March 14:26 - CONCLUSION: 1. The uterus and ovaries are unremarkable in appearance. 2. Minimal fluid in the cul-de-sac which can be a physiologic finding in a patient this age. Fransisco Cali MD Differential Diagnosis Differential diagnosis includes inguinal canal strain, psoas abscess, PID, cervicitis, musculoskeletal pain, atypical appendicitis, ovarian torsion, ovarian cyst. Narrative Course IV was established, labs are drawn and sent, and the patient was placed on cardiac telemetry monitoring and continuous pulse oximetry monitoring. I reviewed the patient's EMR from April 01, 1999 and the patient was evaluated by Dr. Galindo. The CT of abdomen and pelvis at that time revealed bilateral ovarian cyst that revealed a normal appendix. Gonorrhea and chlamydia cultures were negative. UA was unremarkable. Laboratory evaluation was unremarkable. I do discussion with the patient regarding pelvic exam, she defers pelvic since she had a normal one last week, however, was told she has an abnormal cervix. She has not followed up with a automatic print developer. 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 Ultrasound with Doppler was performed. Ultrasound was unremarkable except for a small amount of free fluid in the cul-de-sac which can be physiologic in this patient's age group. The patient was reevaluated at 3:26 PM. Diagnosis Primary Impression: Abdominal pain Qualified Codes: R10.31 - Right lower quadrant pain Referrals: [facility] Patient Instructions: General Instructions Additional Instructions: Please provide the patient a copy of her CT results from last week as well as her ultrasound results and lab results from this week. Follow-up with the women 's care clinic and/or the local clinic. Medications as directed. Med/Other Pt SpecificInfo: Prescription(s) given Scripts Hydrocodone-Acetaminophen ([place]) 5 Mg-325 Mg Tab 1 TAB PO Q6H Y for PAIN, #12 TAB 0 Refills Prov: Chandler Rosa MD 04/10/17 Ibuprofen (Ibuprofen) 600 Mg Tab 600 MG PO Q6H Y for Pain/Inflammation, #20 TAB 0 Refills Prov: Chandler Rosa MD 04/10/17 Disposition: 01 DISCHARGE HOME Condition: Stable Chandler Rosa MD Apr 10, 2017 14:15
--- NOTE | 2017-04-10 14:55 | RADRPT ---
EXAM DATE/TIME: 04/10/2017 14:26 [facility] COMPARISON: No previous studies available for comparison. INDICATIONS : Pelvic pain. MEDICAL HISTORY : Pelvic pain. Ovarian cysts. SURGICAL HISTORY : [place] teeth removal. Breast biopsy. ENCOUNTER: Initial ACUITY: 3 weeks PAIN SCORE: 3/10 LOCATION: Bilateral pelvis MEASUREMENTS: UTERUS: 8.2 x 3.3 x 5.2 cm ENDOMETRIAL STRIPE: 1 mm RIGHT OVARY: 3.8 x 2.2 x 2.4 cm LEFT OVARY: 3.1 x 2.3 x 2.4 cm FINDINGS: UTERUS: The myometrium has homogeneous echotexture without mass. RIGHT OVARY: Ovary contains no mass or significant cystic lesion. LEFT OVARY: Ovary contains no mass or significant cystic lesion. MISCELLANEOUS: Minimal free fluid is present. CONCLUSION: 1. The uterus and ovaries are unremarkable in appearance. 2. Minimal fluid in the cul-de-sac which can be a physiologic finding in a patient this age. Fransisco Cali MD on April 10, 2017 at 14:52 Board Certified Radiologist. This report was verified electronically.
[2017-04-10] MEDS ORDERED: IBUP-232 PO (15:31)
[2017-04-10] MEDS ORDERED: NORC5TAB PO (15:31)
== END 2017-04-10 16:20 | disposition home or self-care (01) ==
LOC: NEPD 12:29
DX: R10.31 Right lower quadrant pain (principal); N83.201 Unspecified ovarian cyst, right side; J45.909 Unspecified asthma, uncomplicated
CPT/HCPCS: 76856; 80053; 81001; 83690; 84703; 85025; 93975; 96361; 96374; 96375; 99285; J1885; J2270; J2405; J7040

== ENCOUNTER 2017-05-14 10:57 | Emergency (ER) | payer OTHER ==
[~2017-05-14] VITALS: Ht 162.6 cm; Wt 60.7 kg
[~2017-05-14 10:57] MED LIST changes: -HYDR-3516 PO; +IBUP-232 PO; -MAPA325T PO; -MAPA500T13 PO; +NORC5TAB PO; -ZOFR4TAB3 SL
[2017-05-14 11:03] VITALS: BP 116/65; PULSE 77; RESP 16; TEMP 98.1; O2SAT 98
[2017-05-14] MEDS ORDERED: SODIUM CHLOR 0.9% 1000 ML INJ 1,000 ML IV SCH (11:20)
[2017-05-14] MEDS ORDERED: SODIUM CHLORIDE 0.9% FLUSH 10 ML FLUSH IV FLUSH PRN (11:30)
[2017-05-14] MEDS ORDERED: KETOROLAC TROMETHAMINE 30 MG/ML (IVP) VIAL IVP ONE (11:30)
[2017-05-14] MEDS ORDERED: ONDANSETRON HCL 4 MG/2 ML VIAL IVP ONE (11:30)
[2017-05-14 12:00] VITALS: O2SAT 99
--- NOTE | 2017-05-14 12:06 | RADRPT ---
EXAM DATE/TIME: 05/14/2017 11:37 [facility] COMPARISON: US PELVIS,COMP,W DOPPLER, April 10, 2017, 14:26. INDICATIONS : Pelvic pain. MEDICAL HISTORY : Pelvic pain. Ovarian cysts. SURGICAL HISTORY : [place] teeth removed. Breast biopsy. ENCOUNTER: Subsequent ACUITY: 1 day PAIN SCORE: 7/10 LOCATION: Bilateral pelvis MEASUREMENTS: UTERUS: 7.3 x 4.9 x 3.9 cm ENDOMETRIAL STRIPE: 11 mm RIGHT OVARY: 3.1 x 2.3 x 2.1 cm LEFT OVARY: 2.5 x 1.9 x 1.9 cm FINDINGS: UTERUS: The myometrium has homogeneous echotexture without mass. RIGHT OVARY: Ovary contains no mass or significant cystic lesion. LEFT OVARY: Ovary contains no mass or significant cystic lesion. MISCELLANEOUS: No free fluid. CONCLUSION: Normal examination. Dimas Mccarty Jr., MD on May 14, 2017 at 11:56 Board Certified Radiologist. This report was verified electronically.
[2017-05-14 12:20] LABS: BILIRUBIN, URINE NEG (NEG); BLOOD, URINE NEG (NEG); GLUCOSE,URINE NEG (NEG); KETONE, URINE NEG (NEG); NITRITE,URINE NEG (NEG); URINE LEUKOCYTE ESTERASE SMALL (NEG)
[2017-05-14 12:23] LABS: AUTOMATED NEUTROPHIL # 1.7 TH/MM3 (1.8-7.7); BASOPHIL # 0.1 TH/MM3 (0-0.2); EOSINOPHIL % 1.2 % (0.0-4.0); HEMATOCRIT 37.8 % (35.0-46.0); HEMOGLOBIN 12.5 GM/DL (11.6-15.3); LYMPH % 46.1 % (9.0-44.0); LYMPHOCYTE # 1.7 TH/MM3 (1.0-4.8); MEAN CELL VOLUME 82.4 FL (80.0-100.0); MEAN CORPUSCULAR HEMOGLOBIN 27.2 PG (27.0-34.0); MEAN PLATELET VOLUME 9.3 FL (7.0-11.0); MONO % 5.6 % (0.0-8.0); MONOCYTE # 0.2 TH/MM3 (0-0.9); NEUT % 45.1 % (16.0-70.0); PLATELET COUNT 299 TH/MM3 (150-450); RED BLOOD COUNT 4.58 MIL/MM3 (4.00-5.30); RED CELL DISTRIBUTION WIDTH 12.8 % (11.6-17.2); WHITE BLOOD COUNT 3.7 TH/MM3 (4.0-11.0)
[2017-05-14 12:30] LABS: URINE COLOR YELLOW (YELLW/STRAW)
[2017-05-14 12:31] LABS: BACTERIA, URINE FEW /hpf; SQUAMOUS EPITHELIAL CELL URINE 0-5 /hpf (0-5)
[2017-05-14 12:33] LABS: CHLORIDE 103 MEQ/L (98-107); SODIUM (NA) 136 MEQ/L (136-145)
[2017-05-14 12:37] LABS: ALBUMIN 4.3 GM/DL (3.4-5.0); BICARBONATE 27.2 MEQ/L (21.0-32.0); GLUCOSE,RANDOM 79 MG/DL (74-106)
[2017-05-14 12:38] LABS: BLOOD UREA NITROGEN 11 MG/DL (7-18)
[2017-05-14 12:40] LABS: ALT (GPT) 13 U/L (10-53); AST (GOT) 14 U/L (15-37)
[2017-05-14 12:41] LABS: CREATININE 0.58 MG/DL (0.50-1.00); GLOMERULAR FILTRATION RATE 130 ML/MIN (>89)
[2017-05-14 12:42] LABS: TOTAL BILIRUBIN ADULT 0.2 MG/DL (0.2-1.0); TOTAL PROTEIN 8.3 GM/DL (6.4-8.2)
[2017-05-14 12:43] LABS: ALKALINE PHOSPHATASE 55 U/L (45-117)
[2017-05-14 12:55] VITALS: BP 96/50; PULSE 65; RESP 18; O2SAT 100
[2017-05-14] MEDS ORDERED: IOHEXOL 350 MG/ML 10 ML VIAL (for RAD DIAG) IVCONTRAST ONE (13:06)
--- NOTE | 2017-05-14 13:12 | PD ---
HPI Chief Complaint: Abdominal Pain Time Seen by Provider: 11:09 Travel History International Travel<30 days: No Contact w/Intl Traveler<30days: No Traveled to known affect area: No History of Present Illness HPI Patient is a 21-year-old female who comes in complaining of right pelvic pain. She says it started last night, and she had some nausea, but no vomiting. She says the pain is constant, but she gets waves of more severe pain. She did not try taking anything for the pain. She says that pushing on it makes it feel better. She denies fever chills. She denies vaginal discharge. She denies any exposure to STD. She says she had pain similar to this about a month ago. She denies dysuria, urgency or frequency. Severity is mild to moderate. PFSH Past Medical History Hx Anticoagulant Therapy: No Asthma: Yes Autoimmune Disease: No Cardiovascular Problems: No Developmental Delay: No Diabetes: No Diminished Hearing: No Gastrointestinal Disorders: Yes (nausea) Genitourinary: No Musculoskeletal: No Neurologic: No Psychiatric: No Respiratory: Yes (asthma) Immunizations Current: Yes ?: Not LMP: 04/27/17 : 0 Para: 0 Miscarriage: 0 : 0 Ovarian Cysts: Yes Past Surgical History Surgical History: No Previous Surgery Oral Surgery: Yes (WISDOM TOOTH REMOAVAL) Other Surgery: Yes (RT BREAST BX-BENIGN) Social History Alcohol Use: No Tobacco Use: No Substance Use: No Allergies-Medications (Allergen,Severity, Reaction): Coded Allergies: No Known Allergies (Verified Adverse Reaction, Unknown, 04/10/17) Reported Meds & Prescriptions Reported Meds & Active Scripts Active [place] (Hydrocodone-Acetaminophen) 5 Mg-325 Mg Tab 1 Tab PO Q6H PRN Ibuprofen 600 Mg Tab 600 Mg PO Q6H PRN Review of Systems Except as stated in HPI: all other systems reviewed are Neg General / Constitutional: No: Fever, Chills HENT: No: Headaches, Lightheadedness Cardiovascular: No: Chest Pain or Discomfort Respiratory: No: Shortness of Breath Gastrointestinal: Positive: Nausea, Abdominal Pain, No: Vomiting Genitourinary: No: Dysuria, Discharge Musculoskeletal: No: Myalgias Skin: No Rash, No Change in Pigmentation Neurologic: No: Weakness, Dizziness Physical Exam Narrative GENERAL: Awake and alert, in no acute distress. SKIN: Focused skin assessment warm/dry. No wounds or signs of infection. HEAD: Atraumatic. Normocephalic. EYES: Pupils equal and round. No scleral icterus. ENT: Mucous membranes pink and moist. NECK: Trachea midline. No JVD. CARDIOVASCULAR: Regular rate and rhythm. No murmur appreciated. RESPIRATORY: No accessory muscle use. Clear to auscultation. Breath sounds equal bilaterally. GASTROINTESTINAL: Abdomen soft, non-tender, nondistended. No CVA tenderness. MUSCULOSKELETAL: No obvious deformities. No clubbing. No cyanosis. No edema. NEUROLOGICAL: Awake and alert. No obvious cranial nerve deficits. Motor grossly within normal limits. Normal speech. PSYCHIATRIC: Appropriate mood and affect; insight and judgment normal. Data Data Last Documented VS Vital Signs Date Time Temp Pulse Resp B/P (MAP) Pulse Ox O2 Delivery O2 Flow Rate FiO2 05/14/17 12:55 65 18 96/50 (65) 100 Room Air 05/14/17 11:03 98.1 Orders Orders Complete Blood Count With Diff (05/14/17 11:20) Comprehensive Metabolic Panel (05/14/17 11:20) Urinalysis - C+S If Indicated (05/14/17 11:20) Ct Abd/Pel W Iv Contrast(Rout) (05/14/17 11:20) Iv Access Insert/Monitor (05/14/17 11:20) Ecg Monitoring (05/14/17 11:20) Oximetry (05/14/17 11:20) Ondansetron Inj (Zofran Inj) (05/14/17 11:30) Sodium Chlor 0.9% 1000 Ml Inj (Ns 1000 M (05/14/17 11:20) Sodium Chloride 0.9% Flush (Ns Flush) (05/14/17 11:30) Ketorolac Inj (Toradol Inj) (05/14/17 11:30) Ed Urine Pregnancytest Poc (05/14/17 11:20) Us Pelvis Comp W Doppler (05/14/17 ) Iohexol 350 Inj (Omnipaque 350 Inj) (05/14/17 13:06) Labs Laboratory Tests Test 05/14/17 12:00 White Blood Count 3.7 TH/MM3 Red Blood Count 4.58 MIL/MM3 Hemoglobin 12.5 GM/DL Hematocrit 37.8 % Mean Corpuscular Volume 82.4 FL Mean Corpuscular Hemoglobin 27.2 PG Mean Corpuscular Hemoglobin Concent 33.0 % Red Cell Distribution Width 12.8 % Platelet Count 299 TH/MM3 Mean Platelet Volume 9.3 FL Neutrophils (%) (Auto) 45.1 % Lymphocytes (%) (Auto) 46.1 % Monocytes (%) (Auto) 5.6 % Eosinophils (%) (Auto) 1.2 % Basophils (%) (Auto) 2.0 % Neutrophils # (Auto) 1.7 TH/MM3 Lymphocytes # (Auto) 1.7 TH/MM3 Monocytes # (Auto) 0.2 TH/MM3 Eosinophils # (Auto) 0.0 TH/MM3 Basophils # (Auto) 0.1 TH/MM3 CBC Comment DIFF FINAL Differential Comment Urine Collection Type CLEAN CATCH Urine Color YELLOW Urine Turbidity CLEAR Urine pH 7.0 Urine Specific [place] 1.011 Urine Protein NEG mg/dL Urine Glucose (UA) NEG mg/dL Urine Ketones NEG mg/dL Urine Occult Blood NEG Urine Nitrite NEG Urine Bilirubin NEG Urine Leukocyte Esterase SMALL Urine WBC 3-5 /hpf Urine Squamous Epithelial Cells 0-5 /hpf Urine Bacteria FEW /hpf Microscopic Urinalysis Comment CULT NOT INDICATED Urine Collection Time 12:00 Blood Urea Nitrogen 11 MG/DL Creatinine 0.58 MG/DL Random Glucose 79 MG/DL Total Protein 8.3 GM/DL Albumin 4.3 GM/DL Calcium Level 9.0 MG/DL Alkaline Phosphatase 55 U/L Aspartate Amino Transf (AST/SGOT) 14 U/L Alanine Aminotransferase (ALT/SGPT) 13 U/L Total Bilirubin 0.2 MG/DL Sodium Level 136 MEQ/L Potassium Level 3.6 MEQ/L Chloride Level 103 MEQ/L Carbon Dioxide Level 27.2 MEQ/L Anion Gap 6 MEQ/L Estimat Glomerular Filtration Rate 130 ML/MIN [facility] Medical Decision Making Medical Screen Exam Complete: Yes Emergency Medical Condition: Yes Medical Record Reviewed: Yes Differential Diagnosis Ovarian cyst versus UTI versus appendicitis Narrative Course Patient is a 21-year-old female who comes in complaining of right pelvic pain. Exam shows no acute abnormalities. I have established, labs sent. Labs show no acute abnormalities. Ultrasound of the pelvis performed shows no acute abnormalities, other than a small right ovarian cyst.. Patient given IV fluids and Toradol. CT abdomen and pelvis shows no evidence of appendicitis. I spoke with Dr. Mccarty regarding the ultrasound results, he says that he sees only a small cyst, and he believes the CAT scan is being read as the whole ovary. Last 24 hours Impressions Abdomen/Pelvis CT 05/14/17 1120 Signed Impressions: Service Date/Time: Sunday, May 14, 2017 12:59 - CONCLUSION: 2.6 CM cystic mass right adnexa region. There is no evidence for appendicitis no inflammatory changes identified. Pierre Lobato MD FACR Pelvis Ultrasound 05/14/17 0000 Signed Impressions: Service Date/Time: Sunday, May 14, 2017 11:37 - CONCLUSION: Normal examination. Dimas Mccarty Jr., MD Diagnosis Primary Impression: Ovarian cyst Qualified Codes: N83.201 - Unspecified ovarian cyst, right side Patient Instructions: General Instructions, Ovarian Cyst (ED) Additional Instructions: Follow-up with gynecology. Take ibuprofen as needed for pain. Drink plenty of fluids. Return to the ED as needed for any worsening symptoms. Disposition: 01 DISCHARGE HOME Condition: Stable Ligia Lemus MD May 14, 2017 13:12
--- NOTE | 2017-05-14 13:17 | RADRPT ---
EXAM DATE/TIME: 05/14/2017 12:59 [facility] COMPARISON: CT ABDOMEN & PELVIS W CONTRAST, April 01, 2017, 12:22. INDICATIONS : Right lower quadrant pain. IV CONTRAST: 80 cc Omnipaque 350 (iohexol) IV ORAL CONTRAST: No oral contrast ingested. RADIATION DOSE: 5.23 CTDIvol (mGy) MEDICAL HISTORY : Asthma. SURGICAL HISTORY : None. ENCOUNTER: Initial ACUITY: 1 day PAIN SCALE: 9/10 LOCATION: Right lower quadrant TECHNIQUE: Volumetric scanning of the abdomen and pelvis was performed. Using automated exposure control and ad justment of the mA and/or kV according to patient size, radiation dose was kept as low as reasonably achievable to obtain optimal diagnostic quality images. DICOM format image data is available electro nically for review and comparison. FINDINGS: LOWER LUNGS: The visualized lower lungs are clear. LIVER: Homogeneous density without lesion. There is no dilation of the biliary tree. No calcified gallston es. SPLEEN: Normal size without lesion. PANCREAS: Within normal limits. KIDNEYS: Normal in size and shape. There is no mass, stone or hydronephrosis. ADRENAL GLANDS: Within normal limits. VASCULAR: There is no aortic aneurysm. BOWEL/MESENTERY: The stomach, small bowel, and colon demonstrate no acute abnormality. There is no free intraperitone al air or fluid. There is then normal appearing appendix seen best on series 601 image 35. There ar e no inflammatory changes identified. ABDOMINAL WALL: Within normal limits. RETROPERITONEUM: There is no lymphadenopathy. BLADDER: No wall thickening or mass. REPRODUCTIVE: 2.6 cm cystic mass right adnexa region without free fluid in the pelvis. INGUINAL: There is no lymphadenopathy or hernia. MUSCULOSKELETAL: Within normal limits for patient age. CONCLUSION: 2.6 CM cystic mass right adnexa region. There is no evidence for appendicitis no inflammatory changes identified. Pierre Lobato MD FACR on May 14, 2017 at 13:11 Board Certified Radiologist. This report was verified electronically.
== END 2017-05-14 13:54 | disposition home or self-care (01) ==
LOC: PHED 10:57
DX: N83.201 Unspecified ovarian cyst, right side (principal); J45.909 Unspecified asthma, uncomplicated
CPT/HCPCS: 74177; 76856; 80053; 81001; 84703; 85025; 93975; 96361; 96374; 96375; 99285; J1885; J2405; J7030; Q9967

== ENCOUNTER 2017-07-20 13:23 | Emergency (ER) | payer OTHER ==
[~2017-07-20] VITALS: Ht 162.6 cm; Wt 60.0 kg
[2017-07-20 13:26] VITALS: BP 110/59; PULSE 88; RESP 16; TEMP 98.7; O2SAT 98
--- NOTE | 2017-07-20 13:45 | PD ---
HPI Chief Complaint: Complaint Time Seen by Provider: 13:41 Travel History International Travel<30 days: No Contact w/Intl Traveler<30days: No Traveled to known affect area: No History of Present Illness HPI Patient presents with complaints of intermittent right lower back pain for 2 weeks. Episodes last several hours. Usually resolves with massage. She does have a son who she lifts frequently. Menses is regular started today. Denies radiation to the groin. Denies colicky nature of pain. Denies hematuria. She does have family history of kidney stones. PFSH Past Medical History Hx Anticoagulant Therapy: No Asthma: Yes Autoimmune Disease: No Cardiovascular Problems: No Developmental Delay: No Diabetes: No Diminished Hearing: No Gastrointestinal Disorders: Yes (nausea) Genitourinary: No Musculoskeletal: No Neurologic: No Psychiatric: No Respiratory: Yes (asthma) Immunizations Current: Yes Influenza Vaccination: Yes ?: Not LMP: NOW : 0 Para: 0 Miscarriage: 0 : 0 Ovarian Cysts: Yes Past Surgical History Oral Surgery: Yes (WISDOM TOOTH REMOAVAL) Other Surgery: Yes (RT BREAST BX-BENIGN) Social History Alcohol Use: No Tobacco Use: No Substance Use: No Allergies-Medications (Allergen,Severity, Reaction): Coded Allergies: No Known Allergies (Verified Adverse Reaction, Unknown, 07/20/17) Reported Meds & Prescriptions Reported Meds & Active Scripts Active [place] (Hydrocodone-Acetaminophen) 5 Mg-325 Mg Tab 1 Tab PO Q6H PRN Ibuprofen 600 Mg Tab 600 Mg PO Q6H PRN Review of Systems General / Constitutional: No: Fever Eyes: No: Visual changes HENT: No: Headaches Cardiovascular: No: Chest Pain or Discomfort Respiratory: No: Shortness of Breath Gastrointestinal: No: Abdominal Pain Genitourinary: No: Dysuria Musculoskeletal: Positive: Pain Skin: No Rash Neurologic: No: Weakness Psychiatric: No: Depression Endocrine: No: Polydipsia Hematologic/Lymphatic: No: Easy Bruising Physical Exam Narrative GENERAL: Well-nourished, well-developed patient. SKIN: Focused skin assessment warm/dry. HEAD: Normocephalic. EYES: No scleral icterus. No injection or drainage. NECK: Supple, trachea midline. No JVD or lymphadenopathy. CARDIOVASCULAR: Regular rate and rhythm without murmurs, gallops, or rubs. RESPIRATORY: Breath sounds equal bilaterally. No accessory muscle use. GASTROINTESTINAL: Abdomen soft, non-tender, nondistended. MUSCULOSKELETAL: No cyanosis, or edema. BACK: Nontender without obvious deformity. No CVA tenderness. Examination of the lower back reveals no midline tenderness right-sided paraspinous pain in the lumbar region negative straight leg raise Data Data Last Documented VS Vital Signs Date Time Temp Pulse Resp B/P (MAP) Pulse Ox O2 Delivery O2 Flow Rate FiO2 07/20/17 13:26 98.7 88 16 110/59 (76) 98 Orders Orders Urinalysis - C+S If Indicated (07/20/17 13:29) Ed Urine Pregnancytest Poc (07/20/17 13:29) Labs Laboratory Tests Test 07/20/17 13:34 Urine Collection Type CLEAN CATCH Urine Color PINK Urine Turbidity CLOUDY Urine pH 6.5 Urine Specific [place] LESS/EQUAL 1.005 Urine Protein TRACE mg/dL Urine Glucose (UA) NEG mg/dL Urine Ketones NEG mg/dL Urine Occult Blood LARGE Urine Nitrite NEG Urine Bilirubin NEG Urine Urobilinogen 1.0 MG/DL Urine Leukocyte Esterase TRACE Urine RBC 50-99 /hpf Urine WBC 3-5 /hpf Urine Squamous Epithelial Cells 6-8 /hpf Urine Amorphous Sediment FEW Microscopic Urinalysis Comment CULT NOT INDICATED Urine Collection Time 1334 MDM Medical Decision Making Medical Screen Exam Complete: Yes Emergency Medical Condition: Yes Differential Diagnosis Musculoskeletal pain, nephrolithiasis, UTI Narrative Course Assessment plan discussed patient bedside. Diagnosis Primary Impression: Musculoskeletal pain Patient Instructions: General Instructions Additional Instructions: Encourage nonsteroidal anti-inflammatories warm heat gentle stretching strengthening and massage. No heavy lifting for 3-4 days. Follow-up with PCP. Return to emergency room with any onset of new symptoms. Med/Other Pt SpecificInfo: No Meds Exist/No RX given Disposition: 01 DISCHARGE HOME Condition: Jerry Melissa MD Jul 20, 2017 13:45
[2017-07-20 13:46] LABS: BILIRUBIN, URINE NEG (NEG); BLOOD, URINE LARGE (NEG); GLUCOSE,URINE NEG (NEG); KETONE, URINE NEG (NEG); NITRITE,URINE NEG (NEG); PH, URINE 6.5 (5.0-8.5); URINE LEUKOCYTE ESTERASE TRACE (NEG)
[2017-07-20 14:02] LABS: URINE COLOR PINK (YELLW/STRAW)
[2017-07-20 14:03] LABS: AMORPHOUS SEDIMENT, URINE FEW
[2017-07-20 14:59] VITALS: BP 126/78
== END 2017-07-20 15:00 | disposition home or self-care (01) ==
LOC: PHED 13:23
DX: M79.1 Myalgia (principal); M54.5 Low back pain; J45.909 Unspecified asthma, uncomplicated
CPT/HCPCS: 81001; 84703; 99283

== ENCOUNTER 2018-05-15 11:05 | Inpatient (IN) ==
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
[2018-05-15] MEDS ORDERED: Sod Chloride 0.9% Inj 1,000 ML IV.CONT PRN (13:07)
[2018-05-15] MEDS ORDERED: Sodium Chlor 0.9% Inj 500 ML IV.SIG PRN (13:07)
[2018-05-15] MEDS ORDERED: Oxytocin 30 Units/500ml Premix 30 UNITS/500 ML BAG IV.SIG ONE (13:07)
[2018-05-15] MEDS ORDERED: Naloxone Inj 0.4 MG/ML Vial IV.PUSH PRN ×2 (13:07→18:58)
[2018-05-15] MEDS ORDERED: fentaNYL Citrate Inj 100 MCG/2 ML Ampul IV.PUSH PRN ×2 (13:07)
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
[2018-05-15] MEDS ORDERED: Citric Acid/Sodium Citrate Liq 30 ML UDC PO SCH (13:15)
[2018-05-15 14:12] LABS: Baso % (Auto) 0.5 % (0.0-2.0); Eos % (Auto) 0.5 % (0.0-4.0); Hematocrit 32.2 % (35.0-46.0); Hemoglobin 10.8 gm/dL (11.6-15.3); Lymph # (Auto) 1.6 th/mm3 (1.0-4.8); Lymph % (Auto) 18.9 % (9.0-44.0); Mean Corpuscular HGB Conc 33.4 % (32.0-36.0); Mean Corpuscular Hemoglobin 24.1 pg (27.0-34.0); Mean Platelet Volume 8.8 fL (7.0-11.0); Mono # (Auto) 0.3 th/mm3 (0.0-0.9); Mono % (Auto) 4.1 % (0.0-8.0); Neut # (Auto) 6.5 th/mm3 (1.8-7.7); Platelet Count 337 th/mm3 (150-450); Red Blood Count 4.47 mil/mm3 (4.00-5.30); Red Cell Distribution Width 15.9 % (11.6-17.2); White Blood Count 8.5 th/mm3 (4.0-11.0)
[2018-05-15] MEDS ORDERED: fentaNYL 2MCG-Bupiv 0.125% Epi 150 ML EPIDURAL ONE (14:41)
[2018-05-15 15:01] LABS: Bilirubin,Urine Negative (Negative); Clarity,Urine Hazy (Clear); Color,Urine Yellow (Yellw/Straw); Glucose,Urine (UA) Negative (Negative); Leukocyte Esterase,Urine Moderate (Negative); Nitrite,Urine Negative (Negative); Specific Gravity,Urine 1.012 (1.002-1.035); Squamous Epithelial Cell,Urine 3 /hpf (0-5)
[2018-05-15 15:23] LABS: Rubella IgG Antibody 126.8 IU/mL (10.0-500.0)
[2018-05-15 15:53] LABS: Hepatitis A IgM Antibody Nonreactive (Nonreactive); Hepatitits B Surface Antigen Nonreactive (Nonreactive)
[2018-05-15] MEDS ORDERED: Measles/Mumps/Rubella Vaccine Inj 0.5 ML Vial SQ ONE (16:00)
[2018-05-15] MEDS ORDERED: Diphtheria/Tetanus/Pertussis Vaccine Inj 0.5 ML Syringe IM ONE (16:00)
--- NOTE | 2018-05-15 16:00 | P.OBLABOR ---
Subjective Interval history: Patient seen and examined. Pt is comfortable after receiving her epidural. She has no complaints at this time. Objective Vital Signs: Vital Signs - 8 hr 05/15/18 11:25 05/15/18 13:06 05/15/18 14:44 Temperature 98.5 F 98.4 F Pulse Rate 116 H 94 H 79 Respiratory Rate 18 18 Blood Pressure 114/86 124/75 115/72 05/15/18 15:15 05/15/18 15:20 05/15/18 15:35 Temperature Pulse Rate 91 H 87 90 Respiratory Rate Blood Pressure 129/75 113/63 107/63 Objective: Pelvic Exam: Cervix: midline Dilatation: 5cm Effacement: 70 Station: -2 Presentation: vertex Membranes: AROM Uterine Contractions: q3-4m FHT's: Category: 1 Baseline: 110s Reactive: yes Variability: moderate Decels: none Assessment and Plan - Diagnosis (1) 39 weeks gestation of Code(s): Z3A.39 - 39 weeks gestation of Status: Acute (2) Uterine contractions Status: Acute (3) Active labor at term Status: Acute - Plan 22yo at 39/3 weeks gestation admitted in active labor FHT Category 1, reassuring patient is s/p epidural placement AROM achieved and IUPC placed Continue expectant management
[2018-05-15] MEDS ORDERED: Influenza (Quadrivalent) Vaccine 0.5 ML Syringe IM ONE (16:30)
[2018-05-15] MEDS ORDERED: fentaNYL Citrate Inj 100 MCG/2 ML Ampul EPIDURAL ONE (17:00)
[2018-05-15] MEDS ORDERED: fentaNYL 2MCG-Bupiv 0.125% Epi 150 ML EPIDURAL PRN (17:00)
[2018-05-15] MEDS ORDERED: Sodium Chlor 0.9% Inj 10 ML ONE (17:04)
[2018-05-15] MEDS ORDERED: Lidocaaine 1.5%/Epinephrine 1:200,000 PF Inj 5 ML Amp ONE (17:04)
[2018-05-15] MEDS ORDERED: Lidocaine PF 1% Inj 5 ML Vial ONE (17:04)
--- NOTE | 2018-05-15 18:57 | P.OBDELI ---
Weeks Gestation: 39 Patient Started Active Labor: Yes Medical Induction of Labor: No Artificial Rupture of Membrane: Yes Artificial ROM Date: 05/15/18 Anesthesia: Epidural, Lidocaine local to perineum Episiotomy: none Vaginal Delivery: Normal, Spontaneous Presentation: Occiput anterior Nuchal Cord: None Delayed Cord Clamping (45 sec): Yes Laceration: Vaginal (left labial ), 1 deg Repair: Chromic running Estimated blood loss (mL): 100 : Female Female A Delivery Date: 05/15/18 Infant Delivery Time: 18:16 Weight: 3.035 kg score (1 min): 9 score (5 min): 9 Additional Information: Delivered by Dr. Bocanegra Supervised by Dr. Schroeder
[2018-05-15] MEDS ORDERED: Bisacodyl 10 MG Supp RECTAL PRN (18:58)
[2018-05-15] MEDS ORDERED: Acetaminophen 325 MG Tablet PO PRN (18:58)
[2018-05-15] MEDS ORDERED: Oxytocin 30 Units/500ml Premix 30 UNITS/500 ML BAG IV.CONT PRN (18:58)
[2018-05-15] MEDS ORDERED: Zolpidem Tartrate 5 MG Tablet PO PRN (18:58)
[2018-05-15] MEDS ORDERED: Benzocaine 20% Top Spray 60 ML Can TOPICAL PRN (18:58)
[2018-05-15] MEDS: Senna/Docusate Sodium 8.6/50 MG Tablet PO SCH (22:09)
[2018-05-15] MEDS: Witch Hazel 50%/Glyderin 12.5% 40 Pad Jar RECTAL PRN (22:09)
--- NOTE | 2018-05-16 07:37 | P.PNOB ---
Subjective Post day: 1 (doing well no problem, nasreen diet , ambulating) Objective Vital Signs/I&O: Vital Signs 05/15/18 11:25 05/15/18 13:06 05/15/18 14:44 Temperature 98.5 F 98.4 F Pulse Rate 116 H 94 H 79 Respiratory Rate 18 18 Blood Pressure 114/86 124/75 115/72 05/15/18 15:15 05/15/18 15:20 05/15/18 15:35 Temperature Pulse Rate 91 H 87 90 Respiratory Rate Blood Pressure 129/75 113/63 107/63 05/15/18 15:55 05/15/18 16:15 05/15/18 16:25 Temperature 98.6 F Pulse Rate 89 75 75 Respiratory Rate 18 18 Blood Pressure 113/69 117/66 05/15/18 16:55 05/15/18 17:00 05/15/18 17:25 Temperature 97.8 F Pulse Rate 69 96 H Respiratory Rate 18 Blood Pressure 104/59 L 111/67 05/15/18 17:30 05/15/18 17:55 05/15/18 18:16 Temperature 98.2 F Pulse Rate 82 80 79 Respiratory Rate 20 Blood Pressure 113/72 113/58 L 124/75 05/15/18 18:55 05/15/18 19:03 05/15/18 19:15 Temperature Pulse Rate 74 83 79 Respiratory Rate 18 16 Blood Pressure 109/64 114/66 115/70 05/15/18 19:20 05/15/18 19:30 05/15/18 19:50 Temperature Pulse Rate 87 73 Respiratory Rate 16 18 Blood Pressure 110/71 105/64 05/15/18 20:58 05/15/18 21:20 Temperature 99.1 F 98.3 F Pulse Rate 69 Respiratory Rate 18 Blood Pressure 119/67 Intake & Output 05/15/18 05/16/18 05/16/18 18:59 06:59 18:59 Weight 77.111 kg Other: Weight On Admission 77.111 kg Result Diagrams: 05/15/18 13:55 Objective Remarks: GENERAL: Well-nourished, well-developed patient. CARDIOVASCULAR: Regular rate and rhythm without murmurs, gallops, or rubs. RESPIRATORY: Breath sounds equal bilaterally. No accessory muscle use. ABDOMEN/GI: Abdomen soft, non-tender. Fundus: Firm, non-tender at umbilicus. GENITOURINARY: Light to moderate bleeding. EXTREMITIES: No cyanosis or edema, non-tender, without signs of DVT. Medications and IVs: Active Medications Acetaminophen (Tylenol) 650 mg PO Q4H PRN PRN Reason: PAIN SCALE 1 TO 2 Al Hydroxide/Mg Hydroxide (Milk Of Magnesia Liq) 30 ml PO Q12H PRN PRN Reason: Mild Constipation Benzocaine (Americaine 20% Top [place]) 1 spray TOPICAL Q4H PRN PRN Reason: For Perineum Discomfort Last Admin: 05/15/18 22:10 Dose: 1 spray Bisacodyl (Dulcolax Supp) 10 mg RECTAL DAILY PRN PRN Reason: SEVERE CONSITIPATION Ephedrine Sulfate (Ephedrine/Ns Syringe) 10 mg IV.PUSH UNSCH PRN PRN Reason: SEE LABEL COMMENTS Stop: 05/16/18 16:59 Last Admin: 05/15/18 19:05 Dose: 10 mg Fentanyl/Bupivacaine/Sodium Chlor (Fentanyl 2 Mcg-Bupiv 0.125% Epi) 150 mls @ 10 mls/hr EPIDURAL PRN PRN PRN Reason: for Labor Pain Oxytocin (Pitocin 30 Units/Ns 500 Ml Premix) 30 units in 500 mls @ 100 mls/hr IV.CONT UNSCH PRN PRN Reason: Heavy bleeding Ibuprofen (Motrin) 800 mg PO Q8H PRN PRN Reason: For Cramping Last Admin: 05/16/18 05:19 Dose: 800 mg Lactulose (Lactulose Liq) 30 ml PO DAILY PRN PRN Reason: SEVERE CONSITIPATION Naloxone HCl (Narcan Inj) 0.1 mg IV.PUSH Q2M PRN PRN Reason: for opiate reversal Ondansetron HCl (Zofran Odt) 4 mg PO Q6H PRN PRN Reason: NAUSEA OR VOMITING Last Admin: 05/16/18 02:50 Dose: 4 mg Oxycodone/Acetaminophen (Percocet 5/325 Mg) 1 tab PO Q4H PRN PRN Reason: PAIN SCALE 3 TO 5 Oxycodone/Acetaminophen (Percocet 5/325 Mg) 2 tab PO Q4H PRN PRN Reason: PAIN SCALE 6 TO 10 Senna/Docusate Sodium (Gregoria-Colace) 1 tab PO BID KENDALL Last Admin: 05/15/18 22:09 Dose: 1 tab Sennosides (Senokot) 17.2 mg PO Q12H PRN PRN Reason: Moderate Constipation Sodium Chloride (Ns Flush) 2 ml IV.FLUSH BID [facility] Last Admin: 05/15/18 22:11 Dose: 2 ml Sodium Chloride (Ns Flush) 2 ml IV.FLUSH PRN PRN PRN Reason: FLUSH AFTER USING IV ACCESS Witch Janiya/Glycerin (Tucks Pads) 1 applicatio RECTAL QID PRN PRN Reason: HEMORRHOIDS Last Admin: 05/15/18 22:09 Dose: 1 applicatio Zolpidem Tartrate (Ambien) 5 mg PO HS PRN PRN Reason: SLEEP Assessment and Plan - Diagnosis (1) Active labor at term Status: Acute (2) 39 weeks gestation of Code(s): Z3A.39 - 39 weeks gestation of Status: Acute - Plan 22yo doing well , nasreen diet ,ambulating ., plan progressive PP care
[2018-05-16] MEDS: Senna/Docusate Sodium 8.6/50 MG Tablet PO SCH (09:58)
[2018-05-17] MEDS: Senna/Docusate Sodium 8.6/50 MG Tablet PO SCH ×2 (00:08→09:17)
--- NOTE | 2018-05-17 08:38 | P.PNOB ---
Subjective Interval history: Patient is a 22-year-old delivered at 39 weeks and 3 days. Patient is day 2 after . Patient's pain is well-controlled. Patient reports eating and drinking without any nausea or vomiting. Patient reports minimal bleeding. Patient has passed gas and had a bowel movement. Patient is walking without lower extremity pain or shortness of breath. Patient reports desire for contraception and is breast-feeding. Objective Vital Signs/I&O: Vital Signs 05/16/18 20:00 Temperature 98.0 F Pulse Rate 74 Respiratory Rate 18 Blood Pressure 111/64 Result Diagrams: 05/15/18 13:55 Objective Remarks: GENERAL: Well-nourished, well-developed patient. CARDIOVASCULAR: Regular rate and rhythm without murmurs, gallops, or rubs. RESPIRATORY: Breath sounds equal bilaterally. No accessory muscle use. ABDOMEN/GI: Abdomen soft, non-tender. Fundus: Firm, non-tender at umbilicus. GENITOURINARY: Light to moderate bleeding. EXTREMITIES: No cyanosis or edema, non-tender, without signs of DVT. Medications and IVs: Active Medications Acetaminophen (Tylenol) 650 mg PO Q4H PRN PRN Reason: PAIN SCALE 1 TO 2 Al Hydroxide/Mg Hydroxide (Milk Of Magnesia Liq) 30 ml PO Q12H PRN PRN Reason: Mild Constipation Benzocaine (Americaine 20% Top [place]) 1 spray TOPICAL Q4H PRN PRN Reason: For Perineum Discomfort Last Admin: 05/15/18 22:10 Dose: 1 spray Bisacodyl (Dulcolax Supp) 10 mg RECTAL DAILY PRN PRN Reason: SEVERE CONSITIPATION Fentanyl/Bupivacaine/Sodium Chlor (Fentanyl 2 Mcg-Bupiv 0.125% Epi) 150 mls @ 10 mls/hr EPIDURAL PRN PRN PRN Reason: for Labor Pain Oxytocin (Pitocin 30 Units/Ns 500 Ml Premix) 30 units in 500 mls @ 100 mls/hr IV.CONT UNSCH PRN PRN Reason: Heavy bleeding Ibuprofen (Motrin) 800 mg PO Q8H PRN PRN Reason: For Cramping Last Admin: 05/17/18 00:08 Dose: 800 mg Lactulose (Lactulose Liq) 30 ml PO DAILY PRN PRN Reason: SEVERE CONSITIPATION Naloxone HCl (Narcan Inj) 0.1 mg IV.PUSH Q2M PRN PRN Reason: for opiate reversal Ondansetron HCl (Zofran Odt) 4 mg PO Q6H PRN PRN Reason: NAUSEA OR VOMITING Last Admin: 05/16/18 02:50 Dose: 4 mg Oxycodone/Acetaminophen (Percocet 5/325 Mg) 1 tab PO Q4H PRN PRN Reason: PAIN SCALE 3 TO 5 Last Admin: 05/17/18 00:07 Dose: 1 tab Oxycodone/Acetaminophen (Percocet 5/325 Mg) 2 tab PO Q4H PRN PRN Reason: PAIN SCALE 6 TO 10 Last Admin: 05/16/18 18:45 Dose: 2 tab Senna/Docusate Sodium (Gregoria-Colace) 1 tab PO BID KENDALL Last Admin: 05/17/18 00:08 Dose: 1 tab Sennosides (Senokot) 17.2 mg PO Q12H PRN PRN Reason: Moderate Constipation Sodium Chloride (Ns Flush) 2 ml IV.FLUSH BID KENDALL Last Admin: 05/17/18 00:08 Dose: Not Given Sodium Chloride (Ns Flush) 2 ml IV.FLUSH PRN PRN PRN Reason: FLUSH AFTER USING IV ACCESS Witch Janiya/Glycerin (Tucks Pads) 1 applicatio RECTAL QID PRN PRN Reason: HEMORRHOIDS Last Admin: 05/15/18 22:09 Dose: 1 applicatio Zolpidem Tartrate (Ambien) 5 mg PO HS PRN PRN Reason: SLEEP Assessment and Plan - Diagnosis (1) Vaginal delivery Code(s): O80 - Encounter for full-term uncomplicated delivery Status: Acute - Plan Patient is a 22-year-old delivered at 39 weeks and 3 days. Patient is day 2 after . Continue routine care. Motrin and Percocet when necessary for pain. Encourage OOB. Pelvic rest for 6 weeks will need follow-up appointment at that time. Contraception: Will discuss with OB provider appropriately. Anticipate discharge today Discussed with Dr. Babin. - Attending Attestation The exam, history, and the medical decision-making described in the above note were completed with the assistance of the resident physician. I reviewed and agree with the findings presented. I attest that I had a [id number] encounter with the patient on the same day, and personally performed and documented my assessment and findings in the medical record.
[2018-05-17] MEDS: Witch Hazel 50%/Glyderin 12.5% 40 Pad Jar RECTAL PRN (09:26)
[2018-05-17 13:36] VITALS: BP 110/63; PULSE 69; RESP 16; TEMP 97.9
== END 2018-05-17 15:15 | disposition home or self-care (01) | DRG 807 ==
LOC: HOBED 11:05 → H2E 13:07 → H1EA 21:11
PROVIDERS: ADMIT Obstetrics & Gynecology Maternal & Fetal Medicine; ATTEND Obstetrics & Gynecology Maternal & Fetal Medicine
CPT/HCPCS: 59025; 80074; 81001; 85025; 86592; 86762; 86850; 86900; 86901; 87081; 87150; 87389; 87491; 87591; 90658; 90686; 90715; 99285; J2590; J7120; Q2038